=== PATIENT | female | born 1935 | race Caucasian/White ===

== ENCOUNTER 2016-09-02 09:07 | Emergency (ER) | payer MEDICARE, OTHER ==
[2016-09-02] MEDS ORDERED: ASPIRIN 81 MG CHEW PO STA (09:24)
[2016-09-02] MEDS ORDERED: SODIUM CHLORIDE 0.9% 1,000 ML IV STA (09:24)
[2016-09-02] MEDS ORDERED: NITROGLYCERIN OINT 1 INCH/GM PACKET TOPICAL STA (09:24)
--- NOTE | 2016-09-02 09:27 | ED ---
General Adult HPI - General Chief complaint: Chest Pain Stated complaint: chest pain Time Seen by Provider: 09/02/16 09:13 Source: patient, family, RN notes reviewed Mode of arrival: EMS Limitations: no limitations - History of Present Illness Initial comments: Patient is a pleasant 81-year-old female presenting to the emergency department complaining of chest discomfort. Patient has had some symptoms over the past several days. Patient is currently symptom-free. Patient had symptoms again this morning. Discomfort is mild. Patient is unclear what the discomfort felt like. No associated nausea or vomiting. Patient does have associated dyspnea at times. No leg pain or swelling. No cough or fever. No history of cardiac problems. - Related Data Allergies Allergy/AdvReac Type Severity Reaction Status Date / Time No Known Allergies Allergy Verified 09/02/16 09:14 Review of Systems ROS Statement: Those systems with pertinent positive or pertinent negative responses have been documented in the HPI. ROS Other: All systems not noted in ROS Statement are negative. Constitutional: Denies: fever Eyes: Denies: eye pain ENT: Denies: ear pain Respiratory: Reports: dyspnea. Denies: cough Cardiovascular: Reports: chest pain Endocrine: Denies: fatigue Gastrointestinal: Denies: abdominal pain Genitourinary: Denies: dysuria Musculoskeletal: Denies: back pain Skin: Denies: rash Neurological: Denies: weakness Past Medical History Past Medical History: Seizure Disorder, Syncope History of Any Multi-Drug Resistant Organisms: None Reported Past Surgical History: No Surgical Hx Reported Past Psychological History: No Psychological Hx Reported Smoking Status: Former smoker Past Alcohol Use History: None Reported Past Drug Use History: None Reported General Exam Limitations: no limitations General appearance: alert, in no apparent distress Head exam: Present: atraumatic Eye exam: Present: normal appearance, PERRL ENT exam: Present: normal oropharynx Neck exam: Present: normal inspection Respiratory exam: Present: normal lung sounds bilaterally Cardiovascular Exam: Present: regular rate, normal rhythm Expanded Peripheral pulses: 2+: Radial (R), Radial (L), Dorsalis Pedis (R), Dorsalis Pedis (L) GI/Abdominal exam: Present: soft. Absent: tenderness Extremities exam: Present: normal inspection. Absent: pedal edema, calf tenderness Neurological exam: Present: alert Psychiatric exam: Present: normal affect, normal mood Skin exam: Absent: rash Course Vital Signs 09/02/16 09/02/16 09:08 10:14 Temperature 98.1 F Pulse Rate 59 L 52 L Respiratory 16 18 Rate Blood Pressure 122/67 115/59 O2 Sat by Pulse 98 98 Oximetry EKG Findings - EKG Comments: EKG Findings:: Sinus bradycardia 59. Normal intervals. Left axis. Low QRS voltage. Nonspecific ST-T. Medical Decision Making - Medical Decision Making Patient reexamined and resting comfortably in bed. Patient and family updated on results and plan. Case was discussed in detail with Dr. Hoover, who will admit for Dr. Olguin. - Lab Data Result diagrams: 09/02/16 09:20 09/02/16 09:20 Lab Results 09/02/16 09/02/16 09/02/16 Range/Units 09:20 09:20 09:20 WBC 3.8 (3.8-10.6) k/uL RBC 4.42 (3.80-5.40) m/uL Hgb 13.3 (11.4-16.0) gm/dL Hct 39.9 (34.0-46.0) % MCV 90.3 (80.0-100.0) fL MCH 30.1 (25.0-35.0) pg MCHC 33.3 (31.0-37.0) g/dL RDW 13.5 (11.5-15.5) % Plt Count 194 (150-450) k/uL Neutrophils % 50 % Lymphocytes % 36 % Monocytes % 7 % Eosinophils % 3 % Basophils % 1 % Neutrophils # 1.9 (1.3-7.7) k/uL Lymphocytes # 1.4 (1.0-4.8) k/uL Monocytes # 0.3 (0-1.0) k/uL Eosinophils # 0.1 (0-0.7) k/uL Basophils # 0.0 (0-0.2) k/uL PT (9.0-12.0) sec INR (<1.1) APTT (22.0-30.0) sec Sodium 139 (137-145) mmol/L Potassium 4.7 (3.5-5.1) mmol/L Chloride 108 H (98-107) mmol/L Carbon Dioxide 21 L (22-30) mmol/L Anion Gap 10 mmol/L BUN 8 (7-17) mg/dL Creatinine 0.80 (0.52-1.04) mg/dL Est GFR (MDRD) Af Amer >60 (>60 ml/min/1.73 sqM) Est GFR (MDRD) Non-Af >60 (>60 ml/min/1.73 sqM) Glucose 100 H (74-99) mg/dL Calcium 8.5 (8.4-10.2) mg/dL Magnesium 1.7 (1.6-2.3) mg/dL Total Bilirubin 0.9 (0.2-1.3) mg/dL AST 29 (14-36) U/L ALT 34 (9-52) U/L Alkaline Phosphatase 93 (38-126) U/L Total Creatine Kinase 96 (30-135) U/L CK-MB (CK-2) 0.5 (0.0-2.4) ng/mL CK-MB (CK-2) Rel Index 0.5 Troponin I <0.012 (0.000-0.034) ng/mL Total Protein 6.5 (6.3-8.2) g/dL Albumin 3.4 L (3.5-5.0) g/dL 09/02/16 Range/Units 09:20 WBC (3.8-10.6) k/uL RBC (3.80-5.40) m/uL Hgb (11.4-16.0) gm/dL Hct (34.0-46.0) % MCV (80.0-100.0) fL MCH (25.0-35.0) pg MCHC (31.0-37.0) g/dL RDW (11.5-15.5) % Plt Count (150-450) k/uL Neutrophils % % Lymphocytes % % Monocytes % % Eosinophils % % Basophils % % Neutrophils # (1.3-7.7) k/uL Lymphocytes # (1.0-4.8) k/uL Monocytes # (0-1.0) k/uL Eosinophils # (0-0.7) k/uL Basophils # (0-0.2) k/uL PT 10.6 (9.0-12.0) sec INR 1.1 (<1.1) APTT 24.0 (22.0-30.0) sec Sodium (137-145) mmol/L Potassium (3.5-5.1) mmol/L Chloride (98-107) mmol/L Carbon Dioxide (22-30) mmol/L Anion Gap mmol/L BUN (7-17) mg/dL Creatinine (0.52-1.04) mg/dL Est GFR (MDRD) Af Amer (>60 ml/min/1.73 sqM) Est GFR (MDRD) Non-Af (>60 ml/min/1.73 sqM) Glucose (74-99) mg/dL Calcium (8.4-10.2) mg/dL Magnesium (1.6-2.3) mg/dL Total Bilirubin (0.2-1.3) mg/dL AST (14-36) U/L ALT (9-52) U/L Alkaline Phosphatase (38-126) U/L Total Creatine Kinase (30-135) U/L CK-MB (CK-2) (0.0-2.4) ng/mL CK-MB (CK-2) Rel Index Troponin I (0.000-0.034) ng/mL Total Protein (6.3-8.2) g/dL Albumin (3.5-5.0) g/dL - Radiology Data Radiology results: image reviewed (Chest x-ray shows minimal right focal density. Acute pulmonary process not otherwise identified.) Disposition Clinical Impression: Chest pain Disposition: ADMITTED IP TO THIS HOSP
[2016-09-02 09:37] LABS: Basophils % (A) 1 %; CH 29.8; CHCM 33.2; Eosinophils # (A) 0.1 k/uL (0-0.7); Eosinophils % (A) 3 %; HCT 39.9 % (34.0-46.0); HDW 2.28; HGB 13.3 gm/dL (11.4-16.0); Luc # (Auto) 0.11; Luc % (Auto) 3; Lymphocytes # (A) 1.4 k/uL (1.0-4.8); Lymphocytes % (A) 36 %; MCH 30.1 pg (25.0-35.0); MCHC 33.3 g/dL (31.0-37.0); MCV 90.3 fL (80.0-100.0); Mean Platelet Volume 8.2; Monocytes # (A) 0.3 k/uL (0-1.0); Monocytes % (A) 7 %; Neutrophils # (A) 1.9 k/uL (1.3-7.7); Neutrophils % (A) 50 %; RBC 4.42 m/uL (3.80-5.40); RDW 13.5 % (11.5-15.5); WBC 3.8 k/uL (3.8-10.6); WBC (Perox) 3.87
[2016-09-02 09:47] LABS: INR 1.1 (<1.1); Prothrombin Time 10.6 sec (9.0-12.0)
--- NOTE | 2016-09-02 09:50 | XR ---
EXAMINATION TYPE: XR chest 2V DATE OF EXAM: 09/02/2016 9:43 AM COMPARISON: NONE INDICATION: Chest pain TECHNIQUE: Frontal and lateral views of the chest are obtained. FINDINGS: The heart size is normal. The pulmonary vasculature is normal. Some minimal infiltrate in the right base. Follow up is recommended. IMPRESSION: 1. Minimal focal density and/or infiltrate in the right infrahilar region. Follow-up is recommended. 2. Acute pulmonary process is not otherwise identified.
[2016-09-02 09:54] LABS: Anion Gap 10 mmol/L; Calcium 8.5 mg/dL (8.4-10.2); Carbon Dioxide 21 mmol/L (22-30); Chloride 108 mmol/L (98-107); Glucose 100 mg/dL (74-99); Non-African American GFR(MDRD) >60 (>60 ml/min/1.73 sqM); Sodium 139 mmol/L (137-145); Total Bilirubin 0.9 mg/dL (0.2-1.3); Total Protein 6.5 g/dL (6.3-8.2)
[2016-09-02 10:00] LABS: ALT 34 U/L (9-52); AST 29 U/L (14-36); Blood Urea Nitrogen 8 mg/dL (7-17); Magnesium 1.7 mg/dL (1.6-2.3); Potassium 4.7 mmol/L (3.5-5.1)
[2016-09-02 10:01] LABS: Alkaline Phosphatase 93 U/L (38-126)
[2016-09-02 10:06] LABS: Creatine Kinase 96 U/L (30-135)
[2016-09-02 10:19] LABS: Creatine Kinase MB 0.5 ng/mL (0.0-2.4)
[2016-09-02 10:25] LABS: Troponin I <0.012 ng/mL (0.000-0.034)
[2016-09-02] MEDS ORDERED: NITROGLYCERIN SL TABS 0.4 MG TAB SUBLINGUAL PRN (11:40)
[2016-09-02] MEDS ORDERED: NITROGLYCERIN OINT 1 INCH/GM PACKET TOPICAL SCH (12:00)
[2016-09-02 12:08] VITALS: BP 114/57; PULSE 51; RESP 20; TEMP 97.5
[2016-09-02] MEDS ORDERED: HEPARIN SODIUM,PORCINE 5,000 UNIT/ML 1 ML VIAL SQ SCH (21:00)
[2016-09-03] MEDS ORDERED: ASPIRIN 325 MG TAB PO SCH (09:00)
== END 2016-09-02 12:36 | disposition left against medical advice (07) ==
LOC: EEVIPCON 09:07 → EC 09:07 → UNDOADMOB 11:40 → 3OBS 11:40 → EC 12:36
DX: R07.89 Other chest pain (principal); R06.00 Dyspnea, unspecified; G40.909 Epilepsy, unspecified, not intractable, without status epilepticus; Z87.891 Personal history of nicotine dependence; Z79.82 Long term (current) use of aspirin; Z79.899 Other long term (current) drug therapy
CPT/HCPCS: 36415; 71020; 80053; 82550; 82553; 83735; 84484; 85025; 85610; 85730; 93005; 96360; 96361; 99285

== ENCOUNTER 2016-10-03 19:38 | Emergency (ER) | payer MEDICARE ==
[2016-10-03 19:57] VITALS: RESP 16; TEMP 98.4
[2016-10-03] MEDS ORDERED: SODIUM CHLORIDE 0.9% 1,000 ML IV STA (20:12)
[2016-10-03] MEDS ORDERED: SODIUM CHLORIDE 0.9% 500 ML IV STA (20:12)
--- NOTE | 2016-10-03 20:14 | ED ---
General Adult HPI - General Chief complaint: Abdominal Pain Stated complaint: ABD PAIN Time Seen by Provider: 10/03/16 19:58 Source: patient, EMS, RN notes reviewed, old records reviewed Mode of arrival: EMS Limitations: no limitations - History of Present Illness Initial comments: This is an 81-year-old female here for evaluation of weakness dizziness, feels like she may pass out. Patient has history of seizure, history of stroke. Patient has no chest pain. No shortness of breath. No abdominal pain. No change medications. She did have diarrhea yesterday and is had decreased appetite. She does feel dehydrated. Patient denies fever no sickness to travel history. No sick contacts. - Related Data Home Medications Medication Instructions Recorded Confirmed Acetaminophen Tab [Tylenol Tab] 500 mg PO Q6H PRN 09/02/16 10/03/16 Aspirin EC [Ecotrin Low Dose] 81 mg PO DAILY@0909/02/16 10/03/16 Atorvastatin [Lipitor] 40 mg PO HS@192909/02/16 10/03/16 Cholecalciferol [Vitamin D3] 1,000 unit PO DAILY@0909/02/16 10/03/16 Escitalopram [Lexapro] 15 mg PO DAILY@0909/02/16 10/03/16 Hydrocortisone Valerate 1 applic TOPICAL BID PRN 09/02/16 10/03/16 LORazepam [Ativan] 0.25 mg PO BID@0900,192909/02/16 10/03/16 Metoprolol Tartrate [Lopressor] 25 mg PO BID@0900,192909/02/16 10/03/16 Omeprazole 20 mg PO BID@0900,192909/02/16 10/03/16 Rivastigmine Tartrate [Exelon] 1.5 mg PO AC-BID@0900,192909/02/16 10/03/16 amLODIPine [Norvasc] 5 mg PO DAILY@0909/02/16 10/03/16 levETIRAcetam [Keppra] 500 mg PO BID@0900,192909/02/16 10/03/16 Allergies Allergy/AdvReac Type Severity Reaction Status Date / Time cat dander Allergy Unknown Verified 10/03/16 20:16 erythromycin base Allergy Unknown Verified 03/14/17 20:16 [From Erythrocin] watermelon Allergy Unknown Verified 10/03/16 20:16 Review of Systems ROS Statement: Those systems with pertinent positive or pertinent negative responses have been documented in the HPI. ROS Other: All systems not noted in ROS Statement are negative. Past Medical History Past Medical History: Seizure Disorder, Syncope History of Any Multi-Drug Resistant Organisms: None Reported Past Surgical History: No Surgical Hx Reported Past Psychological History: No Psychological Hx Reported Smoking Status: Former smoker Past Alcohol Use History: None Reported Past Drug Use History: None Reported General Exam Limitations: no limitations General appearance: alert, in no apparent distress Head exam: Present: atraumatic, normocephalic, normal inspection Eye exam: Present: normal appearance, PERRL, EOMI. Absent: scleral icterus, conjunctival injection, periorbital swelling ENT exam: Present: normal exam, mucous membranes moist Neck exam: Present: normal inspection. Absent: tenderness, meningismus, lymphadenopathy Respiratory exam: Present: normal lung sounds bilaterally. Absent: respiratory distress, wheezes, rales, rhonchi, stridor Cardiovascular Exam: Present: regular rate, normal rhythm, normal heart sounds. Absent: systolic murmur, diastolic murmur, rubs, gallop, clicks GI/Abdominal exam: Present: soft, normal bowel sounds. Absent: distended, tenderness, guarding, rebound, rigid Extremities exam: Present: normal inspection, full ROM, normal capillary refill. Absent: tenderness, pedal edema, joint swelling, calf tenderness Back exam: Present: normal inspection Neurological exam: Present: alert, oriented X3, CN II-XII intact Psychiatric exam: Present: normal affect, normal mood Skin exam: Present: warm, dry, intact, normal color. Absent: rash Course Vital Signs 10/03/16 19:54 Temperature 98.4 F Pulse Rate 68 Respiratory 16 Rate Blood Pressure 144/71 O2 Sat by Pulse 95 Oximetry EKG Findings - EKG Comments: EKG Findings:: EKG shows normal sinus rhythm rate of 67, [place] 152, QRS 66, QTC 441 Medical Decision Making - Medical Decision Making 81 female seen and evaluated for diarrhea, weakness, abdominal pain, dizziness. Patient's symptoms of this time resolved, she has no complaints. Urinary tract infection is cleared up, patient can be discharged home - Lab Data Result diagrams: 10/03/16 19:50 10/03/16 19:50 Lab Results 10/03/16 10/03/16 10/03/16 Range/Units 19:50 19:50 19:50 WBC 5.4 (3.8-10.6) k/uL RBC 4.12 (3.80-5.40) m/uL Hgb 12.2 (11.4-16.0) gm/dL Hct 37.8 (34.0-46.0) % MCV 91.6 (80.0-100.0) fL MCH 29.6 (25.0-35.0) pg MCHC 32.3 (31.0-37.0) g/dL RDW 13.7 (11.5-15.5) % Plt Count 222 (150-450) k/uL Neutrophils % 54 % Lymphocytes % 32 % Monocytes % 7 % Eosinophils % 3 % Basophils % 1 % Neutrophils # 2.9 (1.3-7.7) k/uL Lymphocytes # 1.8 (1.0-4.8) k/uL Monocytes # 0.4 (0-1.0) k/uL Eosinophils # 0.2 (0-0.7) k/uL Basophils # 0.0 (0-0.2) k/uL PT (9.0-12.0) sec INR (<1.1) APTT (22.0-30.0) sec Sodium 135 L (137-145) mmol/L Potassium 4.7 (3.5-5.1) mmol/L Chloride 103 (98-107) mmol/L Carbon Dioxide 22 (22-30) mmol/L Anion Gap 10 mmol/L BUN 15 (7-17) mg/dL Creatinine 0.90 (0.52-1.04) mg/dL Est GFR (MDRD) Af Amer >60 (>60 ml/min/1.73 sqM) Est GFR (MDRD) Non-Af >60 (>60 ml/min/1.73 sqM) Glucose 101 H (74-99) mg/dL Calcium 8.8 (8.4-10.2) mg/dL Phosphorus 4.0 (2.5-4.5) mg/dL Magnesium 1.7 (1.6-2.3) mg/dL Total Bilirubin 0.7 (0.2-1.3) mg/dL AST 20 (14-36) U/L ALT 21 (9-52) U/L Alkaline Phosphatase 89 (38-126) U/L Total Creatine Kinase 70 (30-135) U/L CK-MB (CK-2) 0.6 (0.0-2.4) ng/mL CK-MB (CK-2) Rel Index 0.9 Troponin I <0.012 (0.000-0.034) ng/mL Total Protein 6.7 (6.3-8.2) g/dL Albumin 3.7 (3.5-5.0) g/dL Urine Color Urine Appearance (Clear) Urine pH (5.0-8.0) Ur Specific [place] (1.001-1.035) Urine Protein (Negative) Urine Glucose (UA) (Negative) Urine Ketones (Negative) Urine Blood (Negative) Urine Nitrate (Negative) Urine Bilirubin (Negative) Urine Urobilinogen (<2.0) mg/dL Ur Leukocyte Esterase (Negative) Urine RBC (0-5) /hpf Urine WBC (0-5) /hpf Ur Squamous Epith Cells (0-4) /hpf Urine Bacteria (None) /hpf Urine Mucus (None) /hpf 10/03/16 10/03/16 Range/Units 19:50 21:50 WBC (3.8-10.6) k/uL RBC (3.80-5.40) m/uL Hgb (11.4-16.0) gm/dL Hct (34.0-46.0) % MCV (80.0-100.0) fL MCH (25.0-35.0) pg MCHC (31.0-37.0) g/dL RDW (11.5-15.5) % Plt Count (150-450) k/uL Neutrophils % % Lymphocytes % % Monocytes % % Eosinophils % % Basophils % % Neutrophils # (1.3-7.7) k/uL Lymphocytes # (1.0-4.8) k/uL Monocytes # (0-1.0) k/uL Eosinophils # (0-0.7) k/uL Basophils # (0-0.2) k/uL PT 10.3 (9.0-12.0) sec INR 1.0 (<1.1) APTT 22.9 (22.0-30.0) sec Sodium (137-145) mmol/L Potassium (3.5-5.1) mmol/L Chloride (98-107) mmol/L Carbon Dioxide (22-30) mmol/L Anion Gap mmol/L BUN (7-17) mg/dL Creatinine (0.52-1.04) mg/dL Est GFR (MDRD) Af Amer (>60 ml/min/1.73 sqM) Est GFR (MDRD) Non-Af (>60 ml/min/1.73 sqM) Glucose (74-99) mg/dL Calcium (8.4-10.2) mg/dL Phosphorus (2.5-4.5) mg/dL Magnesium (1.6-2.3) mg/dL Total Bilirubin (0.2-1.3) mg/dL AST (14-36) U/L ALT (9-52) U/L Alkaline Phosphatase (38-126) U/L Total Creatine Kinase (30-135) U/L CK-MB (CK-2) (0.0-2.4) ng/mL CK-MB (CK-2) Rel Index Troponin I (0.000-0.034) ng/mL Total Protein (6.3-8.2) g/dL Albumin (3.5-5.0) g/dL Urine Color Yellow Urine Appearance Clear (Clear) Urine pH 5.0 (5.0-8.0) Ur Specific [place] 1.007 (1.001-1.035) Urine Protein Negative (Negative) Urine Glucose (UA) Negative (Negative) Urine Ketones Negative (Negative) Urine Blood Negative (Negative) Urine Nitrate Negative (Negative) Urine Bilirubin Negative (Negative) Urine Urobilinogen <2.0 (<2.0) mg/dL Ur Leukocyte Esterase Trace H (Negative) Urine RBC 1 (0-5) /hpf Urine WBC 2 (0-5) /hpf Ur Squamous Epith Cells <1 (0-4) /hpf Urine Bacteria Rare H (None) /hpf Urine Mucus Rare H (None) /hpf Disposition Clinical Impression: Dehydration Disposition: HOME SELF-CARE Condition: Good Instructions: Dehydration (ED) Referrals: Souleymane Olguin DO [Primary Care Provider] - 1-2 days
[2016-10-03 20:28] LABS: Basophils % (A) 1 %; CH 29.9; CHCM 32.8; Eosinophils # (A) 0.2 k/uL (0-0.7); Eosinophils % (A) 3 %; HCT 37.8 % (34.0-46.0); HDW 2.27; HGB 12.2 gm/dL (11.4-16.0); Luc # (Auto) 0.15; Luc % (Auto) 3; Lymphocytes # (A) 1.8 k/uL (1.0-4.8); Lymphocytes % (A) 32 %; MCH 29.6 pg (25.0-35.0); MCHC 32.3 g/dL (31.0-37.0); MCV 91.6 fL (80.0-100.0); Mean Platelet Volume 8.2; Monocytes # (A) 0.4 k/uL (0-1.0); Monocytes % (A) 7 %; Neutrophils # (A) 2.9 k/uL (1.3-7.7); Neutrophils % (A) 54 %; RBC 4.12 m/uL (3.80-5.40); RDW 13.7 % (11.5-15.5); WBC 5.4 k/uL (3.8-10.6); WBC (Perox) 5.45
[2016-10-03 20:38] LABS: ALT 21 U/L (9-52); AST 20 U/L (14-36); Alkaline Phosphatase 89 U/L (38-126); Anion Gap 10 mmol/L; Blood Urea Nitrogen 15 mg/dL (7-17); Calcium 8.8 mg/dL (8.4-10.2); Carbon Dioxide 22 mmol/L (22-30); Chloride 103 mmol/L (98-107); Glucose 101 mg/dL (74-99); Magnesium 1.7 mg/dL (1.6-2.3); Non-African American GFR(MDRD) >60 (>60 ml/min/1.73 sqM); Potassium 4.7 mmol/L (3.5-5.1); Sodium 135 mmol/L (137-145); Total Bilirubin 0.7 mg/dL (0.2-1.3); Total Protein 6.7 g/dL (6.3-8.2)
[2016-10-03 20:45] LABS: Creatine Kinase 70 U/L (30-135)
[2016-10-03 20:47] LABS: Partial Thromboplastin Time 22.9 sec (22.0-30.0); Prothrombin Time 10.3 sec (9.0-12.0)
[2016-10-03 20:58] LABS: Creatine Kinase MB 0.6 ng/mL (0.0-2.4); Troponin I <0.012 ng/mL (0.000-0.034)
[2016-10-03 22:17] LABS: Appearance,Urine Clear (Clear); Bacteria,Urine Rare /hpf; Bilirubin,Urine Negative (Negative); Glucose,Urine (UA) Negative (Negative); Ketones,Urine Negative (Negative); Leukocyte Esterase,Urine Trace (Negative); Mucus,Urine Rare /hpf; Nitrite,Urine Negative (Negative); Particle Count 890; Protein,Urine Negative (Negative); RBC,Urine 1 /hpf (0-5); Specific Gravity,Urine 1.007 (1.001-1.035); Squamous Epithelial Cell,Urine <1 /hpf (0-4); UA Billing (MACRO vs. MICRO) MICRO; Urobilinogen,Urine <2.0 mg/dL (<2.0); WBC,Urine 2 /hpf (0-5)
[2016-10-03 22:50] VITALS: BP 134/76; PULSE 59
== END 2016-10-03 22:46 | disposition home or self-care (01) ==
LOC: EC 19:38
DX: E86.0 Dehydration (principal); R10.9 Unspecified abdominal pain; G40.909 Epilepsy, unspecified, not intractable, without status epilepticus; Z87.891 Personal history of nicotine dependence; Z79.82 Long term (current) use of aspirin; Z79.899 Other long term (current) drug therapy; Z88.1 Allergy status to other antibiotic agents; Z91.018 Allergy to other foods; Z91.09 Other allergy status, other than to drugs and biological substances; Z86.73 Personal history of transient ischemic attack (TIA), and cerebral infarction without residual deficits
CPT/HCPCS: 36415; 80053; 81001; 82550; 82553; 83735; 84100; 84484; 85025; 85610; 85730; 87086; 93005; 96360; 99285

== ENCOUNTER 2016-11-09 17:07 | Emergency (ER) | payer MEDICARE ==
[2016-11-09 17:15] VITALS: TEMP 99.9
[2016-11-09] MEDS ORDERED: LORazepam 2 MG/ML SYRINGE IV STA (17:25)
--- NOTE | 2016-11-09 17:28 | ED ---
General Adult HPI - General Chief complaint: Seizure Stated complaint: Seizure Time Seen by Provider: 11/09/16 17:09 Source: patient, EMS, RN notes reviewed Mode of arrival: EMS Limitations: altered mental status - History of Present Illness Initial comments: Patient is a pleasant 81-year-old female presenting to the emergency department following seizure. Patient does not recall the episode however states she feels like she does after a seizure. Patient feels slightly drowsy. Patient denies any injury. Patient does not feel confused. Patient states she usually gets seizures approximately once a week. - Related Data Home Medications Medication Instructions Recorded Confirmed Acetaminophen Tab [Tylenol Tab] 500 mg PO Q6H PRN 09/02/16 11/09/16 Aspirin EC [Ecotrin Low Dose] 81 mg PO DAILY@89909/02/16 11/09/16 Atorvastatin [Lipitor] 40 mg PO HS@192909/02/16 11/09/16 Cholecalciferol [Vitamin D3] 1,000 unit PO DAILY@89909/02/16 11/09/16 Escitalopram [Lexapro] 15 mg PO DAILY@89909/02/16 11/09/16 Hydrocortisone Valerate 1 applic TOPICAL BID PRN 09/02/16 11/09/16 LORazepam [Ativan] 0.25 mg PO BID@09,192909/02/16 11/09/16 Metoprolol Tartrate [Lopressor] 25 mg PO BID@09,192909/02/16 11/09/16 Omeprazole 20 mg PO BID@09,192909/02/16 11/09/16 Rivastigmine Tartrate [Exelon] 1.5 mg PO AC-BID@09,192909/02/16 11/09/16 amLODIPine [Norvasc] 5 mg PO DAILY@89909/02/16 11/09/16 levETIRAcetam [Keppra] 500 mg PO BID@09,192909/02/16 11/09/16 Cefuroxime Axetil [Ceftin] 500 mg PO BID@0900,192911/09/16 11/09/16 Previous Rx's Medication Instructions Recorded Sulfamethox-Tmp 800-160Mg [Bactrim 1 each PO Q12HR #20 tab 11/09/16 DS 800-160 mg] Allergies Allergy/AdvReac Type Severity Reaction Status Date / Time cat dander Allergy Unknown Verified 11/09/16 17:24 erythromycin base Allergy Unknown Verified 11/09/16 17:24 [From Erythrocin] watermelon Allergy Unknown Verified 11/09/16 17:24 Review of Systems ROS Statement: Those systems with pertinent positive or pertinent negative responses have been documented in the HPI. ROS Other: All systems not noted in ROS Statement are negative. Constitutional: Denies: fever Eyes: Denies: eye pain ENT: Denies: ear pain Respiratory: Denies: cough Cardiovascular: Denies: chest pain Endocrine: Denies: fatigue Gastrointestinal: Denies: abdominal pain Genitourinary: Denies: urgency Musculoskeletal: Denies: back pain Skin: Denies: rash Neurological: Denies: headache, weakness Past Medical History Past Medical History: Seizure Disorder, Syncope History of Any Multi-Drug Resistant Organisms: None Reported Past Surgical History: No Surgical Hx Reported Past Psychological History: No Psychological Hx Reported Smoking Status: Former smoker Past Alcohol Use History: None Reported Past Drug Use History: None Reported General Exam Limitations: altered mental status General appearance: alert, in no apparent distress Head exam: Present: atraumatic Eye exam: Present: normal appearance, PERRL, EOMI ENT exam: Present: normal oropharynx Neck exam: Present: normal inspection. Absent: tenderness, meningismus Respiratory exam: Present: normal lung sounds bilaterally Cardiovascular Exam: Present: regular rate, normal rhythm GI/Abdominal exam: Present: soft. Absent: tenderness Extremities exam: Present: normal inspection, full ROM. Absent: tenderness Neurological exam: Present: alert, CN II-XII intact. Absent: motor sensory deficit Expanded Patient oriented to: Present: person, place Cranial nerves: EOM's Intact: Normal Motor strength exam: RUE: 5, LUE: 5, RLE: 5, LLE: 5 Psychiatric exam: Present: normal affect, normal mood Skin exam: Present: normal color Course Vital Signs 11/09/16 11/09/16 17:11 18:14 Temperature 99.9 F H Pulse Rate 72 64 Respiratory 20 18 Rate Blood Pressure 133/72 121/59 O2 Sat by Pulse 97 Oximetry EKG Findings - EKG Comments: EKG Findings:: Normal sinus rhythm 66. SD 150. QRS 66. QT 432. QTC 452. Left axis. Normal QRS. Normal ST-T. Medical Decision Making - Medical Decision Making Patient reexamined and resting comfortably in bed. Patient is symptom-free. Family states patient has actually had very few seizures over the past year since starting Keppra. Keppra level has been ordered and sent out. Patient and family updated on results and plan. Patient will be covered with antibiotics for possible urinary tract infection. Daughter states patient did recently finish antibiotics for urinary tract infection. EMS report states cephalosporin. - Lab Data Result diagrams: 11/09/16 17:25 11/09/16 17:25 Lab Results 11/09/16 11/09/16 11/09/16 Range/Units 17:25 17:25 18:06 WBC 6.9 (3.8-10.6) k/uL RBC 4.40 (3.80-5.40) m/uL Hgb 13.5 (11.4-16.0) gm/dL Hct 40.8 (34.0-46.0) % MCV 92.6 (80.0-100.0) fL MCH 30.7 (25.0-35.0) pg MCHC 33.1 (31.0-37.0) g/dL RDW 13.8 (11.5-15.5) % Plt Count 242 (150-450) k/uL Neutrophils % 60 % Lymphocytes % 25 % Monocytes % 7 % Eosinophils % 5 % Basophils % 1 % Neutrophils # 4.1 (1.3-7.7) k/uL Lymphocytes # 1.7 (1.0-4.8) k/uL Monocytes # 0.5 (0-1.0) k/uL Eosinophils # 0.4 (0-0.7) k/uL Basophils # 0.1 (0-0.2) k/uL Sodium 135 L (137-145) mmol/L Potassium 4.7 (3.5-5.1) mmol/L Chloride 100 (98-107) mmol/L Carbon Dioxide 24 (22-30) mmol/L Anion Gap 11 mmol/L BUN 16 (7-17) mg/dL Creatinine 0.89 (0.52-1.04) mg/dL Est GFR (MDRD) Af Amer >60 (>60 ml/min/1.73 sqM) Est GFR (MDRD) Non-Af >60 (>60 ml/min/1.73 sqM) Glucose 106 H (74-99) mg/dL Calcium 9.1 (8.4-10.2) mg/dL Magnesium 1.7 (1.6-2.3) mg/dL Total Bilirubin 0.7 (0.2-1.3) mg/dL AST 22 (14-36) U/L ALT 24 (9-52) U/L Alkaline Phosphatase 104 (38-126) U/L Total Protein 6.9 (6.3-8.2) g/dL Albumin 3.9 (3.5-5.0) g/dL Urine Color Yellow Urine Appearance Clear (Clear) Urine pH 5.5 (5.0-8.0) Ur Specific [place] 1.019 (1.001-1.035) Urine Protein 1+ H (Negative) Urine Glucose (UA) Negative (Negative) Urine Ketones Negative (Negative) Urine Blood Negative (Negative) Urine Nitrite Negative (Negative) Urine Bilirubin Negative (Negative) Urine Urobilinogen <2.0 (<2.0) mg/dL Ur Leukocyte Esterase Trace H (Negative) Urine RBC 2 (0-5) /hpf Urine WBC 7 H (0-5) /hpf Ur Squamous Epith Cells 1 (0-4) /hpf Urine Bacteria Rare H (None) /hpf Hyaline Casts 1 (0-2) /lpf Urine Mucus Moderate H (None) /hpf - Radiology Data Radiology results: image reviewed (Chest x-ray shows atelectasis. Numerous thoracic compression fractures that appear stable.) Disposition Clinical Impression: Generalized seizure Disposition: HOME SELF-CARE Condition: Stable Instructions: Recurrent Seizures in Adults (ED) Additional Instructions: Please follow-up to primary care physician in the next day or 2 for recheck. Please have primary care physician review report and check for urine culture results. Return for fever, increased seizures, altered mental status, weakness , worsening symptoms or other concerns. Prescriptions: Sulfamethox-Tmp 800-160Mg [Bactrim DS 800-160 mg] 1 each PO Q12HR #20 tab Referrals: Souleymane Olguin DO [Primary Care Provider] - 1-2 days Yon Harp MD [STAFF PHYSICIAN] - 1-2 days
[2016-11-09 17:43] LABS: Basophils # (A) 0.1 k/uL (0-0.2); Basophils % (A) 1 %; CH 30.6; CHCM 33.2; Eosinophils # (A) 0.4 k/uL (0-0.7); Eosinophils % (A) 5 %; HCT 40.8 % (34.0-46.0); HDW 2.24; HGB 13.5 gm/dL (11.4-16.0); Luc # (Auto) 0.14; Luc % (Auto) 2; Lymphocytes # (A) 1.7 k/uL (1.0-4.8); Lymphocytes % (A) 25 %; MCH 30.7 pg (25.0-35.0); MCHC 33.1 g/dL (31.0-37.0); MCV 92.6 fL (80.0-100.0); Mean Platelet Volume 8.4; Monocytes # (A) 0.5 k/uL (0-1.0); Monocytes % (A) 7 %; Neutrophils # (A) 4.1 k/uL (1.3-7.7); Neutrophils % (A) 60 %; RDW 13.8 % (11.5-15.5); WBC 6.9 k/uL (3.8-10.6); WBC (Perox) 7.28
[2016-11-09 17:53] LABS: ALT 24 U/L (9-52); AST 22 U/L (14-36); Alkaline Phosphatase 104 U/L (38-126); Anion Gap 11 mmol/L; Blood Urea Nitrogen 16 mg/dL (7-17); Calcium 9.1 mg/dL (8.4-10.2); Carbon Dioxide 24 mmol/L (22-30); Chloride 100 mmol/L (98-107); Glucose 106 mg/dL (74-99); Magnesium 1.7 mg/dL (1.6-2.3); Non-African American GFR(MDRD) >60 (>60 ml/min/1.73 sqM); Potassium 4.7 mmol/L (3.5-5.1); Sodium 135 mmol/L (137-145); Total Bilirubin 0.7 mg/dL (0.2-1.3); Total Protein 6.9 g/dL (6.3-8.2)
--- NOTE | 2016-11-09 17:57 | XR ---
EXAMINATION TYPE: XR chest 2V DATE OF EXAM: 11/09/2016 5:52 PM COMPARISON: 09/02/2016 HISTORY: Seizure today TECHNIQUE: Frontal and lateral views of the chest are obtained. FINDINGS: There is some linear density at the left lung base. Heart size is normal. There are no hil ar masses. Thoracic aorta is atheromatous. There are chest leads. There is osteopenia with thoracic k yphosis and anterior wedging of several vertebra. IMPRESSION: There is new atelectasis at the left lung base compared to last exam. No heart failure. Numerous thoracic compression fractures appear stable.
[2016-11-09 18:24] LABS: Appearance,Urine Clear (Clear); Bacteria,Urine Rare /hpf; Bilirubin,Urine Negative (Negative); Glucose,Urine (UA) Negative (Negative); Ketones,Urine Negative (Negative); Leukocyte Esterase,Urine Trace (Negative); Mucus,Urine Moderate /hpf; Nitrite,Urine Negative (Negative); PH, Urine 5.5 (5.0-8.0); Particle Count 4614; Protein,Urine 1+ (Negative); RBC,Urine 2 /hpf (0-5); Specific Gravity,Urine 1.019 (1.001-1.035); Squamous Epithelial Cell,Urine 1 /hpf (0-4); UA Billing (MACRO vs. MICRO) MICRO; Urobilinogen,Urine <2.0 mg/dL (<2.0); WBC,Urine 7 /hpf (0-5)
[2016-11-09 18:29] VITALS: BP 121/59; PULSE 64; RESP 18
== END 2016-11-09 19:09 | disposition home or self-care (01) ==
LOC: EC 17:07
DX: G40.909 Epilepsy, unspecified, not intractable, without status epilepticus (principal); J98.11 Atelectasis; Z88.1 Allergy status to other antibiotic agents; Z91.018 Allergy to other foods; Z91.09 Other allergy status, other than to drugs and biological substances; Z79.82 Long term (current) use of aspirin; Z79.899 Other long term (current) drug therapy; Z87.891 Personal history of nicotine dependence
CPT/HCPCS: 99285 ×2; 96374 ×2; 36415; 93005; 80053; 83735; 85025; 81001; 87086; 87077; 87186; 71020; J2060

== ENCOUNTER 2017-05-13 12:29 | Emergency (ER) | payer MEDICARE ==
[2017-05-13] MEDS ORDERED: SODIUM CHLORIDE 0.9% 500 ML IV ONE (12:49)
[2017-05-13] MEDS ORDERED: ONDANSETRON 4 MG/2 ML VIAL IVP STA (12:49)
--- NOTE | 2017-05-13 12:52 | ED ---
General Adult HPI - General Stated complaint: Nausea/Vomiting Time Seen by Provider: 05/13/17 12:40 Source: RN notes reviewed - History of Present Illness Initial comments: This is an 81-year-old female presents emergency Department with dementia. Patient states that her symptoms began shortly after she ate some salami that was in the refrigerator for longer than it should've been.. Patient states she did vomit this morning and continued to have nausea since. Patient states she didn't think she was going to stop being nauseous so she called the ambulance. Patient denies any new abdominal pain but states she has had chronic abdominal pain for quite a while. Patient denies chest pain or difficulty breathing or shortness of breath. Patient denies any recent fever chills or cough. Patient denies any headache patient denies numbness weakness - Related Data Home Medications Medication Instructions Recorded Confirmed Acetaminophen Tab [Tylenol Tab] 500 mg PO Q6H PRN 09/02/16 05/13/17 Aspirin EC [Ecotrin Low Dose] 81 mg PO DAILY@89909/02/16 05/13/17 Atorvastatin [Lipitor] 40 mg PO HS@192909/02/16 05/13/17 Cholecalciferol [Vitamin D3] 1,000 unit PO DAILY@89909/02/16 05/13/17 Escitalopram [Lexapro] 15 mg PO DAILY@89909/02/16 05/13/17 Hydrocortisone Valerate 1 applic TOPICAL BID PRN 09/02/16 05/13/17 LORazepam [Ativan] 0.25 mg PO BID@09,192909/02/16 05/13/17 Metoprolol Tartrate [Lopressor] 25 mg PO BID@09,192909/02/16 05/13/17 Omeprazole 20 mg PO BID@09,192909/02/16 05/13/17 Rivastigmine Tartrate [Exelon] 1.5 mg PO AC-BID@899,192909/02/16 05/13/17 amLODIPine [Norvasc] 5 mg PO DAILY@0909/02/16 05/13/17 levETIRAcetam [Keppra] 500 mg PO BID@09,192909/02/16 05/13/17 Allergies Allergy/AdvReac Type Severity Reaction Status Date / Time cat dander Allergy Unknown Verified 05/13/17 14:12 erythromycin base Allergy Unknown Verified 05/13/17 14:12 [From Erythrocin] watermelon Allergy Unknown Verified 05/13/17 14:12 Review of Systems ROS Statement: Those systems with pertinent positive or pertinent negative responses have been documented in the HPI. ROS Other: All systems not noted in ROS Statement are negative. Past Medical History Past Medical History: Seizure Disorder, Syncope History of Any Multi-Drug Resistant Organisms: None Reported Past Surgical History: No Surgical Hx Reported Past Psychological History: No Psychological Hx Reported Smoking Status: Former smoker Past Alcohol Use History: None Reported Past Drug Use History: None Reported General Exam - General Exam Comments Initial Comments: GENERAL: Patient is well-developed and well-nourished. Patient is nontoxic and well- hydrated and is in mild distress. ENT: Neck is soft and supple. No significant lymphadenopathy is noted. Oropharynx is clear. Moist mucous membranes. Neck has full range of motion without eliciting any pain. EYES: The sclera were anicteric and conjunctiva were pink and moist. Extraocular movements were intact and pupils were equal round and reactive to light. Eyelids were unremarkable. PULMONARY: Unlabored respirations. Good breath sounds bilaterally. No audible rales rhonchi or wheezing was noted. CARDIOVASCULAR: There is a regular rate and rhythm without any murmurs gallops or rubs. ABDOMEN: Soft and nontender with normal bowel sounds. No palpable organomegaly was noted. There is no palpable pulsatile mass. SKIN: Skin is clear with no lesions or rashes and otherwise unremarkable. NEUROLOGIC: Patient is alert and oriented 2. Cranial nerves II through XII are grossly intact. Motor and sensory are also intact. Normal speech, volume and content. Symmetrical smile. MUSCULOSKELETAL: Normal extremities with adequate strength and full range of motion. No lower extremity swelling or edema. No calf tenderness. LYMPHATICS: No significant lymphadenopathy is noted PSYCHIATRIC: Normal psychiatric evaluation. Course Vital Signs 05/13/17 13:01 Temperature 97.5 F L Pulse Rate 67 Respiratory 18 Rate Blood Pressure 112/58 O2 Sat by Pulse 98 Oximetry Medical Decision Making - Medical Decision Making EKG shows normal sinus rhythm at 67 bpm [place] interval is a 54 QRS is 72 QT interval 4:30 QTC is 454 per patient's EKG shows no ST segment elevation or depression or T wave abnormalities are noted. I went back to reevaluate the patient she stated that she was no longer nauseated and had no complaints at this time. Patient was requesting to go home at this time. - Lab Data Result diagrams: 05/13/17 13:14 05/13/17 13:14 Lab Results 05/13/17 05/13/17 Range/Units 13:14 13:14 WBC 8.2 (3.8-10.6) k/uL RBC 3.78 L (3.80-5.40) m/uL Hgb 11.3 L (11.4-16.0) gm/dL Hct 35.5 (34.0-46.0) % MCV 94.0 (80.0-100.0) fL MCH 30.0 (25.0-35.0) pg MCHC 31.9 (31.0-37.0) g/dL RDW 13.8 (11.5-15.5) % Plt Count 287 (150-450) k/uL Neutrophils % 72 % Lymphocytes % 14 % Monocytes % 7 % Eosinophils % 5 % Basophils % 1 % Neutrophils # 5.9 (1.3-7.7) k/uL Lymphocytes # 1.1 (1.0-4.8) k/uL Monocytes # 0.5 (0-1.0) k/uL Eosinophils # 0.4 (0-0.7) k/uL Basophils # 0.1 (0-0.2) k/uL Sodium 130 L (137-145) mmol/L Potassium 4.4 (3.5-5.1) mmol/L Chloride 99 (98-107) mmol/L Carbon Dioxide 22 (22-30) mmol/L Anion Gap 9 mmol/L BUN 10 (7-17) mg/dL Creatinine 0.80 (0.52-1.04) mg/dL Est GFR (MDRD) Af Amer >60 (>60 ml/min/1.73 sqM) Est GFR (MDRD) Non-Af >60 (>60 ml/min/1.73 sqM) Glucose 106 H (74-99) mg/dL Calcium 8.6 (8.4-10.2) mg/dL Magnesium 1.6 (1.6-2.3) mg/dL Total Bilirubin 0.7 (0.2-1.3) mg/dL AST 21 (14-36) U/L ALT 29 (9-52) U/L Alkaline Phosphatase 123 (38-126) U/L Total Protein 6.5 (6.3-8.2) g/dL Albumin 3.3 L (3.5-5.0) g/dL Disposition Clinical Impression: Acute vomiting Disposition: HOME SELF-CARE Instructions: Acute Nausea and Vomiting (ED) Referrals: Souleymane Olguin DO [Primary Care Provider] - 1-2 days Time of Disposition: 14:25
[2017-05-13 13:07] VITALS: RESP 18
[2017-05-13 13:26] LABS: Basophils # (A) 0.1 k/uL (0-0.2); Basophils % (A) 1 %; CH 31.3; CHCM 33.5; Eosinophils # (A) 0.4 k/uL (0-0.7); Eosinophils % (A) 5 %; HCT 35.5 % (34.0-46.0); HDW 2.42; HGB 11.3 gm/dL (11.4-16.0); Luc # (Auto) 0.15; Luc % (Auto) 2; Lymphocytes # (A) 1.1 k/uL (1.0-4.8); Lymphocytes % (A) 14 %; MCHC 31.9 g/dL (31.0-37.0); Mean Platelet Volume 8.4; Monocytes # (A) 0.5 k/uL (0-1.0); Monocytes % (A) 7 %; Neutrophils # (A) 5.9 k/uL (1.3-7.7); Neutrophils % (A) 72 %; RBC 3.78 m/uL (3.80-5.40); RDW 13.8 % (11.5-15.5); WBC 8.2 k/uL (3.8-10.6); WBC (Perox) 8.47
[2017-05-13 13:37] LABS: ALT 29 U/L (9-52); AST 21 U/L (14-36); Alkaline Phosphatase 123 U/L (38-126); Anion Gap 9 mmol/L; Blood Urea Nitrogen 10 mg/dL (7-17); Calcium 8.6 mg/dL (8.4-10.2); Carbon Dioxide 22 mmol/L (22-30); Chloride 99 mmol/L (98-107); Glucose 106 mg/dL (74-99); Magnesium 1.6 mg/dL (1.6-2.3); Non-African American GFR(MDRD) >60 (>60 ml/min/1.73 sqM); Potassium 4.4 mmol/L (3.5-5.1); Sodium 130 mmol/L (137-145); Total Bilirubin 0.7 mg/dL (0.2-1.3); Total Protein 6.5 g/dL (6.3-8.2)
[2017-05-13] MEDS ORDERED: ONDANSETRON 4 MG ODT STARTER PACK 2 TAB BTL PO STA (14:25)
[2017-05-13 14:52] VITALS: BP 106/59; PULSE 66; TEMP 97.2
== END 2017-05-13 14:50 | disposition home or self-care (01) ==
LOC: EC 12:29
DX: R11.10 Vomiting, unspecified (principal); G40.909 Epilepsy, unspecified, not intractable, without status epilepticus; Z87.891 Personal history of nicotine dependence; Z79.82 Long term (current) use of aspirin; Z79.899 Other long term (current) drug therapy; Z88.1 Allergy status to other antibiotic agents; Z91.018 Allergy to other foods; Z91.048 Other nonmedicinal substance allergy status
CPT/HCPCS: 99284 ×2; 96374 ×2; 36415; 93005; 80053; 83735; 85025; J2405; S0119

== ENCOUNTER 2017-05-15 00:06 | Emergency (ER) | payer MEDICARE ==
[2017-05-15 00:15] VITALS: TEMP 98.5
[2017-05-15] MEDS ORDERED: IPRATROPIUM-ALBUTEROL 3 ML NEB INHALATION STA (00:54)
[2017-05-15] MEDS ORDERED: ACETAMINOPHEN TAB 500 MG TAB PO STA (00:57)
--- NOTE | 2017-05-15 00:57 | ED ---
Fall HPI - General Chief Complaint: Fall Stated Complaint: FALL Time Seen by Provider: 05/15/17 00:48 Source: patient Mode of arrival: EMS Limitations: no limitations - History of Present Illness Initial Comments: this an 81-year-old female presents emergency department via EMS from [facility] for a fall. Patient rolled out of bed. Patient states that shepulled out and could not get up. She does complain of left-sided head, upper back pain. She states that some which her neck at this time. She does complain of some left shoulder pain. Denies hip or any low back pain. Patient states that she was seen here yesterday morning for nausea and vomiting which has improved. Patient denies fever or chills. Patient denies any chest pain or shortness of breath. - Related Data Home Medications Medication Instructions Recorded Confirmed Acetaminophen Tab [Tylenol Tab] 500 mg PO Q6H PRN 09/02/16 05/15/17 Aspirin EC [Ecotrin Low Dose] 81 mg PO DAILY@89909/02/16 05/15/17 Atorvastatin [Lipitor] 40 mg PO HS@192909/02/16 05/15/17 Cholecalciferol [Vitamin D3] 1,000 unit PO DAILY@89909/02/16 05/15/17 Escitalopram [Lexapro] 15 mg PO DAILY@89909/02/16 05/15/17 Hydrocortisone Valerate 1 applic TOPICAL BID PRN 09/02/16 05/15/17 LORazepam [Ativan] 0.25 mg PO BID@09,192909/02/16 05/15/17 Metoprolol Tartrate [Lopressor] 25 mg PO BID@09,192909/02/16 05/15/17 Omeprazole 20 mg PO BID@09,192909/02/16 05/15/17 Rivastigmine Tartrate [Exelon] 1.5 mg PO AC-BID@899,192909/02/16 05/15/17 amLODIPine [Norvasc] 5 mg PO DAILY@89909/02/16 05/15/17 levETIRAcetam [Keppra] 500 mg PO BID@09,192909/02/16 05/15/17 Allergies Allergy/AdvReac Type Severity Reaction Status Date / Time cat dander Allergy Unknown Verified 05/15/17 00:15 erythromycin base Allergy Unknown Verified 05/15/17 00:15 [From Erythrocin] watermelon Allergy Unknown Verified 05/15/17 00:15 Review of Systems ROS Statement: Those systems with pertinent positive or pertinent negative responses have been documented in the HPI. ROS Other: All systems not noted in ROS Statement are negative. Past Medical History Past Medical History: Seizure Disorder, Syncope History of Any Multi-Drug Resistant Organisms: None Reported Past Surgical History: No Surgical Hx Reported Past Psychological History: No Psychological Hx Reported Smoking Status: Former smoker Past Alcohol Use History: Occasional Past Drug Use History: None Reported General Exam Limitations: no limitations General appearance: alert, in no apparent distress Head exam: Present: atraumatic, normocephalic, normal inspection Eye exam: Present: normal appearance, PERRL, EOMI. Absent: scleral icterus, conjunctival injection, periorbital swelling ENT exam: Present: normal exam, normal oropharynx, mucous membranes moist, TM's normal bilaterally, normal external ear exam Neck exam: Present: normal inspection, full ROM, other (tenderness over the left trapezius region). Absent: tenderness, meningismus, lymphadenopathy Respiratory exam: Present: normal lung sounds bilaterally. Absent: respiratory distress, wheezes, rales, rhonchi, stridor Cardiovascular Exam: Present: regular rate, normal rhythm, normal heart sounds. Absent: systolic murmur, diastolic murmur, rubs, gallop, clicks Extremities exam: Present: other (mild tenderness to the left shoulder with slightly decreased range of motion.) Back exam: Present: full ROM. Absent: tenderness, muscle spasm, paraspinal tenderness, vertebral tenderness Neurological exam: Present: alert, oriented X3, CN II-XII intact, reflexes normal. Absent: motor sensory deficit Skin exam: Present: warm, dry, intact, normal color. Absent: rash Course Vital Signs 05/15/17 00:10 Temperature 98.5 F Pulse Rate 63 Respiratory 18 Rate Blood Pressure 137/65 O2 Sat by Pulse 96 Oximetry Medical Decision Making - Medical Decision Making 81-year-old female presented emergency department for rolling on the bed, pain. Patient had CT head neck, x-ray shoulder and chest which only showed old compression fractures there is no acute findings. Will be discharged back to her residence home and return if any symptoms worsen. Disposition Clinical Impression: Fall, Head injury, Shoulder contusion, Neck pain Disposition: HOME SELF-CARE Condition: Stable Instructions: Head Injury (ED), Contusion in Adults (ED) Additional Instructions: Please return to the Emergency Department if symptoms worsen or any other concerns. Referrals: Souleymane Olguin DO [Primary Care Provider] - 1-2 days Time of Disposition: 01:38
--- NOTE | 2017-05-15 01:25 | CT ---
EXAMINATION TYPE: CT brain justin womack DATE OF EXAM: 05/15/2017 COMPARISON: NONE HISTORY: fall from bed and hit night stand CT DLP: 1423.10 mGycm Automated exposure control for dose reduction was used. TECHNIQUE: CT scan of the head and cervical spine are performed without contrast. FINDINGS: There is cerebral cortical atrophy. There is no mass effect nor midline shift. There is n o sign of intracranial hemorrhage. The calvarium appears intact. Vertebra have fairly normal alignment. Posterior elements are intact. There is disc space narrowing f rom C3 to C7 with mild spurring of the endplates. Facet joints are intact. The skull base is intact. IMPRESSION: Cerebral atrophy. No acute intracranial abnormality. Mild spondylotic changes in the cervical spine. No fracture.
--- NOTE | 2017-05-15 01:32 | XR ---
EXAMINATION TYPE: XR chest 2V DATE OF EXAM: 05/15/2017 COMPARISON: 11/09/2016 HISTORY: Cough and chest pain TECHNIQUE: Frontal and lateral views of the chest are obtained. FINDINGS: There is no heart failure nor confluent pneumonic infiltrate. Thoracic aorta is atheromato us. There is no sign of pleural effusion. There is osteopenia with anterior wedging of several thorac ic vertebra. IMPRESSION: No active cardiopulmonary disease. There is clearing of some atelectasis at left lung ba se compared to old exam. Multiple old compression fractures.
--- NOTE | 2017-05-15 01:32 | XR ---
EXAMINATION TYPE: XR shoulder complete LT DATE OF EXAM: 05/15/2017 COMPARISON: NONE HISTORY: Pain TECHNIQUE: 3 views FINDINGS: There is some spurring at the shoulder joint. I see no fracture nor dislocation. IMPRESSION: No acute abnormality of the left shoulder. No fracture seen.
[2017-05-15 02:27] VITALS: BP 114/55; PULSE 64; RESP 16
== END 2017-05-15 02:36 | disposition home or self-care (01) ==
LOC: EC 00:06
DX: S40.012A Contusion of left shoulder, initial encounter (principal); S09.90XA Unspecified injury of head, initial encounter; M54.2 Cervicalgia; G40.909 Epilepsy, unspecified, not intractable, without status epilepticus; Z87.891 Personal history of nicotine dependence; Z79.82 Long term (current) use of aspirin; Z79.899 Other long term (current) drug therapy; Z88.1 Allergy status to other antibiotic agents; Z91.018 Allergy to other foods; Z91.09 Other allergy status, other than to drugs and biological substances; W06.XXXA Fall from bed, initial encounter
CPT/HCPCS: 70450; 71020; 72125; 93005; 99284

== ENCOUNTER 2017-06-07 01:11 | Inpatient (IN) | payer MEDICARE ==
[2017-06-07] MEDS ORDERED: SODIUM CHLORIDE 0.9% 1,000 ML IV ONE (01:42)
[2017-06-07 02:10] LABS: Basophils # (A) 0.1 k/uL (0-0.2); Basophils % (A) 1 %; CH 28.8; CHCM 33.3; Eosinophils # (A) 0.5 k/uL (0-0.7); Eosinophils % (A) 7 %; HDW 2.49; Luc # (Auto) 0.09; Luc % (Auto) 1; Lymphocytes # (A) 1.5 k/uL (1.0-4.8); Lymphocytes % (A) 23 %; MCH 28.5 pg (25.0-35.0); MCHC 32.7 g/dL (31.0-37.0); Mean Platelet Volume 8.1; Monocytes # (A) 0.4 k/uL (0-1.0); Monocytes % (A) 7 %; Neutrophils # (A) 4.1 k/uL (1.3-7.7); Neutrophils % (A) 61 %; RBC 3.22 m/uL (3.80-5.40); RDW 13.5 % (11.5-15.5); WBC 6.7 k/uL (3.8-10.6); WBC (Perox) 7.48
[2017-06-07 02:18] LABS: HGB 9.2 gm/dL (11.4-16.0); MCV 86.9 fL (80.0-100.0)
[2017-06-07 02:19] LABS: ALT 31 U/L (9-52); AST 23 U/L (14-36); Alkaline Phosphatase 115 U/L (38-126); Anion Gap 10 mmol/L; Blood Urea Nitrogen 13 mg/dL (7-17); Calcium 8.8 mg/dL (8.4-10.2); Carbon Dioxide 20 mmol/L (22-30); Chloride 97 mmol/L (98-107); Glucose 100 mg/dL (74-99); Magnesium 1.5 mg/dL (1.6-2.3); Non-African American GFR(MDRD) >60 (>60 ml/min/1.73 sqM); Sodium 127 mmol/L (137-145); Total Bilirubin 0.5 mg/dL (0.2-1.3); Total Protein 6.3 g/dL (6.3-8.2)
--- NOTE | 2017-06-07 02:20 | ED ---
Fall HPI - General Chief Complaint: Fall Stated Complaint: Fall,hip & shoulder pain Source: EMS, RN notes reviewed, old records reviewed Mode of arrival: EMS - History of Present Illness Initial Comments: Patient is an 81-year-old female presents emergency Department chief complaint of multiple falls yesterday and today. Patient was called the EMS earlier today for a fall. She refused to be seen at that time. She reports that she thinks that she may have tripped today to cause her fall. She complained of some right shoulder and right hip pain to the EMS. She was able to ambulate after they came to her. Patient reports that she has been having some increased shortness of breath. Denies any changes in bowel movements or urination. She denies any specific chest pain at this time. When daughters arrived to the emergency department they related to nursing staff the patient had a seizure episode yesterday. She typically takes Keppra. They report that after the seizure episode patient was stabilized, they stated that patient was acting appropriate, they felt that she didn't need to be seen at that time. - Related Data Home Medications Medication Instructions Recorded Confirmed Acetaminophen Tab [Tylenol Tab] 500 mg PO Q6H PRN 09/02/16 05/15/17 Aspirin EC [Ecotrin Low Dose] 81 mg PO DAILY@89909/02/16 05/15/17 Atorvastatin [Lipitor] 40 mg PO HS@192909/02/16 05/15/17 Cholecalciferol [Vitamin D3] 1,000 unit PO DAILY@89909/02/16 05/15/17 Escitalopram [Lexapro] 15 mg PO DAILY@89909/02/16 05/15/17 Hydrocortisone Valerate 1 applic TOPICAL BID PRN 09/02/16 05/15/17 LORazepam [Ativan] 0.25 mg PO BID@899,192909/02/16 05/15/17 Metoprolol Tartrate [Lopressor] 25 mg PO BID@899,192909/02/16 05/15/17 Omeprazole 20 mg PO BID@899,192909/02/16 05/15/17 Rivastigmine Tartrate [Exelon] 1.5 mg PO AC-BID@899,192909/02/16 05/15/17 amLODIPine [Norvasc] 5 mg PO DAILY@0900 09/02/16 05/15/17 levETIRAcetam [Keppra] 500 mg PO BID@0900,1930 09/02/16 05/15/17 Allergies Allergy/AdvReac Type Severity Reaction Status Date / Time cat dander Allergy Unknown Verified 05/15/17 00:15 erythromycin base Allergy Unknown Verified 05/15/17 00:15 [From Erythrocin] watermelon Allergy Unknown Verified 05/15/17 00:15 Review of Systems ROS Statement: Those systems with pertinent positive or pertinent negative responses have been documented in the HPI. ROS Other: All systems not noted in ROS Statement are negative. Past Medical History Past Medical History: CVA/TIA, Seizure Disorder, Syncope History of Any Multi-Drug Resistant Organisms: None Reported Past Surgical History: No Surgical Hx Reported Additional Past Surgical History / Comment(s): cataract Past Psychological History: No Psychological Hx Reported, Anxiety Smoking Status: Former smoker Past Alcohol Use History: Occasional Past Drug Use History: None Reported General Exam - General Exam Comments Initial Comments: This is a 81-year-old female. Patient is somewhat confused. Patient does not know the month, does not location and year. Limitations: altered mental status General appearance: alert, in no apparent distress Head exam: Present: atraumatic, normocephalic, normal inspection Eye exam: Present: normal appearance, PERRL, EOMI. Absent: scleral icterus, conjunctival injection, periorbital swelling ENT exam: Present: normal exam, mucous membranes moist Neck exam: Present: normal inspection, tenderness (She reports tenderness all patient over the neck.). Absent: meningismus, lymphadenopathy Respiratory exam: Present: wheezes (Patient has significant wheezing bilaterally.). Absent: normal lung sounds bilaterally, respiratory distress, rales, rhonchi, stridor Cardiovascular Exam: Present: regular rate, normal rhythm, normal heart sounds. Absent: systolic murmur, diastolic murmur, rubs, gallop, clicks GI/Abdominal exam: Present: soft, normal bowel sounds. Absent: distended, tenderness, guarding, rebound, rigid Extremities exam: Present: normal inspection, full ROM, normal capillary refill , other (Patient has bilateral full range of motion of her arms and shoulders. She does have some tenderness to palpation over the left and right shoulder.). Absent: tenderness, pedal edema, joint swelling, calf tenderness Back exam: Present: normal inspection Neurological exam: Present: alert, oriented X3, CN II-XII intact Psychiatric exam: Present: normal affect, normal mood Skin exam: Present: warm, dry, intact, normal color. Absent: rash Course Vital Signs 06/07/17 06/07/17 01:15 03:44 Temperature 97.4 F L Pulse Rate 59 L 60 Respiratory 20 Rate Blood Pressure 148/69 O2 Sat by Pulse 95 Oximetry Medical Decision Making - Medical Decision Making 81-year-old female presents emergency Department chief complaint multiple falls and weakness episodes. Patient denies any worsening shortness of breath chest pain or any other symptoms at this time. She's woke up on the floor multiple times. She also had a seizure episode yesterday. She is managed on Keppra. I did draw a Keppra level is will be sent out. At this time patient's labwork was reviewed, there is a low hemoglobin of 9.2. This is a 2 unit decrease since her previous lab work here 1 month ago. Patient fecal occult was negative. White blood cell count is within normal limits. Patient had x-rays of her back, CT of her brain and C-spine. CT brain was negative for any abnormalities. C-spine and back x-ray shows multiple compression fractures. Pelvis x-ray also shows a questionable right pubic rami fracture. This could' ve been acute from today however could've been related to any of the previous fall she has had in the past week. At this time we'll admit the patient for the compression fractures, anemia, and weakness due to and multiple falls. And is in no per the family that patient typically needs to have a bedside commode, as well as has occasional difficulty in swallowing. Family requests that she has difficulty swallowing pills, but has her take her time when administering them. - Lab Data Result diagrams: 06/07/17 01:53 06/07/17 01:53 Lab Results 06/07/17 06/07/17 06/07/17 Range/Units 01:53 01:53 01:53 WBC 6.7 (3.8-10.6) k/uL RBC 3.22 L (3.80-5.40) m/uL Hgb 9.2 L D (11.4-16.0) gm/dL Hct 28.0 L (34.0-46.0) % MCV 86.9 D (80.0-100.0) fL MCH 28.5 (25.0-35.0) pg MCHC 32.7 (31.0-37.0) g/dL RDW 13.5 (11.5-15.5) % Plt Count 472 H (150-450) k/uL Neutrophils % 61 % Lymphocytes % 23 % Monocytes % 7 % Eosinophils % 7 % Basophils % 1 % Neutrophils # 4.1 (1.3-7.7) k/uL Lymphocytes # 1.5 (1.0-4.8) k/uL Monocytes # 0.4 (0-1.0) k/uL Eosinophils # 0.5 (0-0.7) k/uL Basophils # 0.1 (0-0.2) k/uL PT 11.1 (9.0-12.0) sec INR 1.1 (<1.2) APTT 25.9 (22.0-30.0) sec Sodium 127 L (137-145) mmol/L Potassium 4.0 (3.5-5.1) mmol/L Chloride 97 L (98-107) mmol/L Carbon Dioxide 20 L (22-30) mmol/L Anion Gap 10 mmol/L BUN 13 (7-17) mg/dL Creatinine 0.70 (0.52-1.04) mg/dL Est GFR (MDRD) Af Amer >60 (>60 ml/min/1.73 sqM) Est GFR (MDRD) Non-Af >60 (>60 ml/min/1.73 sqM) Glucose 100 H (74-99) mg/dL Plasma Lactic Acid Evan (0.7-2.0) mmol/L Calcium 8.8 (8.4-10.2) mg/dL Magnesium 1.5 L (1.6-2.3) mg/dL Total Bilirubin 0.5 (0.2-1.3) mg/dL AST 23 (14-36) U/L ALT 31 (9-52) U/L Alkaline Phosphatase 115 (38-126) U/L Total Creatine Kinase (30-135) U/L CK-MB (CK-2) (0.0-2.4) ng/mL CK-MB (CK-2) Rel Index Troponin I (0.000-0.034) ng/mL NT-Pro-B Natriuret Pep pg/mL Total Protein 6.3 (6.3-8.2) g/dL Albumin 3.3 L (3.5-5.0) g/dL Urine Color Urine Appearance (Clear) Urine pH (5.0-8.0) Ur Specific [place] (1.001-1.035) Urine Protein (Negative) Urine Glucose (UA) (Negative) Urine Ketones (Negative) Urine Blood (Negative) Urine Nitrite (Negative) Urine Bilirubin (Negative) Urine Urobilinogen (<2.0) mg/dL Ur Leukocyte Esterase (Negative) Urine RBC (0-5) /hpf Urine WBC (0-5) /hpf Urine Mucus (None) /hpf Stool Occult Blood (Negative) 06/07/17 06/07/17 06/07/17 Range/Units 01:53 01:53 01:53 WBC (3.8-10.6) k/uL RBC (3.80-5.40) m/uL Hgb (11.4-16.0) gm/dL Hct (34.0-46.0) % MCV (80.0-100.0) fL MCH (25.0-35.0) pg MCHC (31.0-37.0) g/dL RDW (11.5-15.5) % Plt Count (150-450) k/uL Neutrophils % % Lymphocytes % % Monocytes % % Eosinophils % % Basophils % % Neutrophils # (1.3-7.7) k/uL Lymphocytes # (1.0-4.8) k/uL Monocytes # (0-1.0) k/uL Eosinophils # (0-0.7) k/uL Basophils # (0-0.2) k/uL PT (9.0-12.0) sec INR (<1.2) APTT (22.0-30.0) sec Sodium (137-145) mmol/L Potassium (3.5-5.1) mmol/L Chloride (98-107) mmol/L Carbon Dioxide (22-30) mmol/L Anion Gap mmol/L BUN (7-17) mg/dL Creatinine (0.52-1.04) mg/dL Est GFR (MDRD) Af Amer (>60 ml/min/1.73 sqM) Est GFR (MDRD) Non-Af (>60 ml/min/1.73 sqM) Glucose (74-99) mg/dL Plasma Lactic Acid Evan 1.0 (0.7-2.0) mmol/L Calcium (8.4-10.2) mg/dL Magnesium (1.6-2.3) mg/dL Total Bilirubin (0.2-1.3) mg/dL AST (14-36) U/L ALT (9-52) U/L Alkaline Phosphatase (38-126) U/L Total Creatine Kinase 151 H (30-135) U/L CK-MB (CK-2) 1.5 (0.0-2.4) ng/mL CK-MB (CK-2) Rel Index 1.0 Troponin I <0.012 (0.000-0.034) ng/mL NT-Pro-B Natriuret Pep 334 pg/mL Total Protein (6.3-8.2) g/dL Albumin (3.5-5.0) g/dL Urine Color Urine Appearance (Clear) Urine pH (5.0-8.0) Ur Specific [place] (1.001-1.035) Urine Protein (Negative) Urine Glucose (UA) (Negative) Urine Ketones (Negative) Urine Blood (Negative) Urine Nitrite (Negative) Urine Bilirubin (Negative) Urine Urobilinogen (<2.0) mg/dL Ur Leukocyte Esterase (Negative) Urine RBC (0-5) /hpf Urine WBC (0-5) /hpf Urine Mucus (None) /hpf Stool Occult Blood (Negative) 06/07/17 06/07/17 Range/Units 03:04 03:04 WBC (3.8-10.6) k/uL RBC (3.80-5.40) m/uL Hgb (11.4-16.0) gm/dL Hct (34.0-46.0) % MCV (80.0-100.0) fL MCH (25.0-35.0) pg MCHC (31.0-37.0) g/dL RDW (11.5-15.5) % Plt Count (150-450) k/uL Neutrophils % % Lymphocytes % % Monocytes % % Eosinophils % % Basophils % % Neutrophils # (1.3-7.7) k/uL Lymphocytes # (1.0-4.8) k/uL Monocytes # (0-1.0) k/uL Eosinophils # (0-0.7) k/uL Basophils # (0-0.2) k/uL PT (9.0-12.0) sec INR (<1.2) APTT (22.0-30.0) sec Sodium (137-145) mmol/L Potassium (3.5-5.1) mmol/L Chloride (98-107) mmol/L Carbon Dioxide (22-30) mmol/L Anion Gap mmol/L BUN (7-17) mg/dL Creatinine (0.52-1.04) mg/dL Est GFR (MDRD) Af Amer (>60 ml/min/1.73 sqM) Est GFR (MDRD) Non-Af (>60 ml/min/1.73 sqM) Glucose (74-99) mg/dL Plasma Lactic Acid Evan (0.7-2.0) mmol/L Calcium (8.4-10.2) mg/dL Magnesium (1.6-2.3) mg/dL Total Bilirubin (0.2-1.3) mg/dL AST (14-36) U/L ALT (9-52) U/L Alkaline Phosphatase (38-126) U/L Total Creatine Kinase (30-135) U/L CK-MB (CK-2) (0.0-2.4) ng/mL CK-MB (CK-2) Rel Index Troponin I (0.000-0.034) ng/mL NT-Pro-B Natriuret Pep pg/mL Total Protein (6.3-8.2) g/dL Albumin (3.5-5.0) g/dL Urine Color Yellow Urine Appearance Clear (Clear) Urine pH 5.5 (5.0-8.0) Ur Specific [place] 1.018 (1.001-1.035) Urine Protein Trace H (Negative) Urine Glucose (UA) Negative (Negative) Urine Ketones Negative (Negative) Urine Blood Trace H (Negative) Urine Nitrite Negative (Negative) Urine Bilirubin Negative (Negative) Urine Urobilinogen <2.0 (<2.0) mg/dL Ur Leukocyte Esterase Negative (Negative) Urine RBC 2 (0-5) /hpf Urine WBC <1 (0-5) /hpf Urine Mucus Rare H (None) /hpf Stool Occult Blood Negative (Negative) 06/07/17 03:06EKG shows sinus bradycardia, left anterior fascicular block. Ventricular rate 57 bpm. OH interval 146 ms. QRS duration [address] elevation or T-wave inversion. - Radiology Data Radiology results: report reviewed Xray of the right humerus shows no acute abnormality of the right humerus. Chest x-ray shows osteopenia, this compression deformity with loss of height of L1 and L2, and T12, T11 and T9 and T8 and T7. There is no definite paraspinal mass. Posterior elements appear intact, vertebral show anterior wedging with up to 70% loss of height anteriorly. There is overall impression is numerous compression fractures appear to relate to osteoporosis. Chest x-ray shows no acute cardiopulmonary disease, multiple people us to pruritic type threat sick compression fractures noted. No significant change compared to previous exams. CT shows cervical atrophy, no acute intracranial normality. No changes compared to old exam. CT of the cervical spine show spondylitic changes in the cervical spine. Weather changes in the lamina of C3 on the left side of progress compared to previous exam raises suspicion for a neoplastic process. There are some soft tissue posterior component. I would consider possibility of chronic fracture. This could be a chronic pedicle fracture. Pathological fracture from neoplastic process should also be considered. MR scan would be helpful for further evaluation if clinically indicated Help and pelvis x-ray obtained. No evidence of hip fracture noted. There is a possible right pubic rami fracture. Disposition Clinical Impression: Compression fracture of body of thoracic vertebra, Frequent falls, Anemia, Weakness, Seizure disorder, Pubic ramus fracture Disposition: ADMITTED IP TO THIS HOSP Condition: Stable Referrals: Souleymane Olguin DO [Primary Care Provider] - 1-2 days Time of Disposition: 03:34
[2017-06-07 02:24] LABS: INR 1.1 (<1.2); Partial Thromboplastin Time 25.9 sec (22.0-30.0); Prothrombin Time 11.1 sec (9.0-12.0)
[2017-06-07 02:30] LABS: Creatine Kinase 151 U/L (30-135)
--- NOTE | 2017-06-07 02:38 | CT ---
EXAMINATION TYPE: CT brain justin wo con DATE OF EXAM: 06/07/2017 COMPARISON: 05/15/2017 HISTORY: fall CT DLP: head 1100.10 body 362.90 mGycm Automated exposure control for dose reduction was used. TECHNIQUE: CT scan of the head and cervical spine are performed without contrast. FINDINGS: There is cerebral cortical atrophy. There is no mass effect nor midline shift. There is n o sign of intracranial hemorrhage. The calvarium appears intact. Exam is limited slightly by motion. Cervical vertebra have fairly normal alignment. There is degenerative disc space narrowing from C3 to C7 where there is mild spurring of the endplates. There is some lucency in the lamina of C3 on the l eft side. There appears to be increased soft tissue density posterior to the pedicle of C3 on the lef t side. The skull base is intact. IMPRESSION: Cerebral atrophy. No acute intracranial abnormality. No change compared to old exam. Spondylotic changes in the cervical spine. Lytic changes in the lamina of C3 on the left side appear s to have progressed compared to last exam and raises the possibility of a neoplastic process. There is some soft tissue posterior component. I would consider the possibility of chronic fracture. This c ould be a chronic pedicle fracture. Pathologic fracture from neoplastic process should also be consid ered. MR scan would be helpful for further evaluation if clinically indicated.
--- NOTE | 2017-06-07 02:41 | XR ---
EXAMINATION TYPE: XR Hip RT and AP Pelvis DATE OF EXAM: 06/07/2017 COMPARISON: NONE HISTORY: Pain TECHNIQUE: A single AP view of the pelvis is obtained. Two views of the right hip are obtained. FINDINGS: There is irregular appearance of the right superior and inferior pubic rami suspicious for nondisplaced fractures. The proximal right femur appears intact. Sacroiliac joints appear intact. CONCLUSION: No hip fracture seen. Possible right pubic rami fractures.
--- NOTE | 2017-06-07 02:42 | XR ---
EXAMINATION TYPE: XR chest 2V DATE OF EXAM: 06/07/2017 COMPARISON: 05/15/2017 HISTORY: Weakness TECHNIQUE: Frontal and lateral views of the chest are obtained. FINDINGS: There is no heart failure nor confluent pneumonic infiltrate. Costophrenic angles are angie r. Thoracic aorta is atheromatous. There is osteopenia with wedging of numerous thoracic vertebra. IMPRESSION: No active cardiopulmonary disease. Multiple osteoporotic type thoracic compression fract ures. No significant change compared to last exam.
[2017-06-07 02:43] LABS: Creatine Kinase MB 1.5 ng/mL (0.0-2.4); Troponin I <0.012 ng/mL (0.000-0.034)
--- NOTE | 2017-06-07 02:44 | XR ---
EXAMINATION TYPE: XR thoracic spine 2V DATE OF EXAM: 06/07/2017 COMPARISON: NONE HISTORY: Back pain TECHNIQUE: 3 views FINDINGS: There is osteopenia. There is compression deformity with loss of height of L1-L2 and T12 T1 1 T9 and T8 T7 T6-3-4. There is no definite paraspinal mass. Posterior elements appear intact. Verteb ra show anterior wedging with up to 70% loss of height anteriorly. IMPRESSION: Numerous compression fractures appear to relate to osteoporosis.
--- NOTE | 2017-06-07 02:46 | XR ---
EXAMINATION TYPE: XR humerus RT DATE OF EXAM: 06/07/2017 COMPARISON: NONE HISTORY: Pain after a fall TECHNIQUE: 2 views FINDINGS: There is osteopenia. Elbow joint appears intact. Shoulder joint appears intact. I see no fr acture. IMPRESSION: No acute abnormality of the right humerus.
[2017-06-07] MEDS ORDERED: IPRATROPIUM-ALBUTEROL 3 ML NEB INHALATION STA (03:17)
[2017-06-07] MEDS ORDERED: MORPHINE SULFATE 10 MG/ML SYRINGE IVP STA (03:18)
[2017-06-07 03:32] LABS: Appearance,Urine Clear (Clear); Bilirubin,Urine Negative (Negative); Glucose,Urine (UA) Negative (Negative); Ketones,Urine Negative (Negative); Leukocyte Esterase,Urine Negative (Negative); Mucus,Urine Rare /hpf; Nitrite,Urine Negative (Negative); PH, Urine 5.5 (5.0-8.0); Particle Count 1833; Protein,Urine Trace (Negative); RBC,Urine 2 /hpf (0-5); Specific Gravity,Urine 1.018 (1.001-1.035); UA Billing (MACRO vs. MICRO) MICRO; Urobilinogen,Urine <2.0 mg/dL (<2.0); WBC,Urine <1 /hpf (0-5)
[2017-06-07] MEDS ORDERED: NALOXONE 0.4 MG/ML 1 ML VIAL IV PRN (03:35)
[2017-06-07] MEDS ORDERED: IBUPROFEN 400 MG TAB PO PRN (03:35)
[2017-06-07] MEDS ORDERED: BISACODYL 5 MG TABLET.DR PO PRN (03:35)
[2017-06-07] MEDS ORDERED: ONDANSETRON 4 MG/2 ML VIAL IVP PRN (03:35)
[2017-06-07] MEDS ORDERED: LORazepam 2 MG/ML INJ IV PRN (03:35)
[2017-06-07] MEDS ORDERED: MORPHINE SULFATE 10 MG/ML SYRINGE IV PRN (03:35)
[2017-06-07 05:17] VITALS: BMI 26.6
[2017-06-07] MEDS: SODIUM CHLORIDE 0.9% 1,000 ML IV SCH ×2 (05:55→19:29)
[2017-06-07] MEDS: Acetaminophen-Codeine 300-30mg TAB PO PRN ×2 (08:20→21:17)
[2017-06-07] MEDS ORDERED: PANTOPRAZOLE 40 MG/10 ML VIAL IV SCH (09:00)
[2017-06-07] MEDS ORDERED: HYDROCORTISONE VALERATE TOPICAL PRN (09:04)
[2017-06-07] MEDS ORDERED: MORPHINE SULFATE 4 MG/ML SYRINGE IV PRN (14:42)
--- NOTE | 2017-06-07 16:28 | HP ---
HISTORY AND PHYSICAL DATE OF ADMISSION: June 07, 2017. PRESENT COMPLAINT: Fall. HISTORY OF PRESENTING COMPLAINT: This is an 81-year-old patient of Dr. Olguin whose chronic stable medical conditions include dementia, hypertension, anxiety. The patient is a resident of [facility]. The patient was sent in from multiple falls. There is a note from the family about this could have been seizures. The patient is lying in bed, comfortable, does not know why she is here. She has some pain when she moves about, was comfortable at rest otherwise. The patient ate about 70% of her meals per the nursing staff. The patient is not able to give much of a history. In the ER, patient is found to have some compression fractures in the spine and possible fracture of the rami on the right side. REVIEW OF SYSTEMS: CONSTITUTIONAL: None. HEENT none. Respiratory none. Cardiovascular none. Gastrointestinal none. Genitourinary: None. MUSCULOSKELETAL: Pain in the hip and lower back. Dermatological none. Hematologic and lymphatic none. Psychiatry forgetful. Neurological: Questionable seizure and having falls. PAST MEDICAL HISTORY: Of questionable stroke, dementia, hypertension, seizure, anxiety, macular degeneration. PAST SURGICAL HISTORY: Cataract surgery. SOCIAL HISTORY: Does smoke in the past. Alcohol occasional. Resident of [facility]. Does use a cane. FAMILY HISTORY: Patient does not remember. HOME MEDICATIONS: 1. Keppra 500 mg p.o. b.i.d. 2. Exelon 1.5 mg a.c. b.i.d. 3. Omeprazole 20 mg b.i.d. 4. Hydrocortisone topical b.i.d. p.r.n. 5. Vitamin D3 1000 units p.o. daily. 6. Lipitor 40 mg q.h.s. 7. Tylenol 500 mg q.6h p.r.n. 8. Lopressor 25 p.o. b.i.d. 9. Ativan 0.25 p.o. b.i.d. 10.Lexapro 50 mg p.o. daily. 11.Aspirin 81 mg p.o. daily. 12.Norvasc 5 mg p.o. daily. ALLERGIES: TO CAT DANDER. ERYTHROMYCIN, WATERMELON. PHYSICAL EXAMINATION: Vital signs on presentation temperature 97.4, pulse 59, respiratory 20, blood pressure 140/69, pulse ox 95% on room air. GENERAL APPEARANCE: Lying in bed, comfortable. Eyes pupils equal. Conjunctivae normal. HEENT: Oral cavity normal. Neck JVD not raised. Mass not palpable. Respiratory effort lungs are clear. Cardiovascular first and second sounds normal. No edema. ABDOMEN: Soft, nontender. Liver and spleen not palpable. Lymphatics : No lymph nodes palpable in the neck and axillae. Psychiatry: Patient thinks she is at [employer] [facility]. She got the year right. She does not know why she is here or who brought her here. INVESTIGATIONS: White count 6.7, hemoglobin 9.2, platelets 472. Sodium 127, bicarb 20, BUN 13, creatinine 0.70. X-rays spine shows fracture of T12, 11, 9, 8, 6, 3 and 4 and also x- ray of the hip shows possible fracture of the superior and inferior pubic rami on the right side. ASSESSMENT: 1. Multiple falls in the patient. At this point cause indeterminate. The patient has some compression fractures. The most of these appear to be chronic, acute cannot be ruled. Need to also rule out orthostatic. 2. Compression fractures of T12, T11, T9, T8, T6 and C3-C4 in the setting of osteoporosis. 3. Possible acute right superior inferior pubic rami fracture. 4. Hypomagnesemia. 5. Metabolic acidosis. 6. Hyponatremia. We will check serum osmolality. 7. Reactive thrombocytosis. 8. Microcytic anemia cause unknown at this point. 9. Alzheimer's dementia late onset type. 10.Chronic seizure disorder. PLAN: We will check patient's serum osmolality and start the patient on salt tablets. We will also add sodium bicarb tablets. Magnesium will be replaced. We will get an orthopedic opinion, though I do not think she is a candidate for surgical opinion. We will need a brace for stability. PT/OT is consulted. Fall precautions are done. Will DC any sedative medication like Ativan and morphine at this point. Patient is rather calm. Tylenol 3 for pain medication. Other home medications resumed. We will also stop the Aricept because of the side effects that is contributing to the fall. Neuro checks are in place. No family is at the bedside. manager perioperative is involved. Copy to Dr. Olguin. MMEVANL / IJN: [id number] /
[2017-06-07] MEDS: levETIRAcetam 500 MG TAB PO SCH (21:13)
[2017-06-07] MEDS: ATORVASTATIN 40 MG TAB PO SCH (21:14)
[2017-06-07] MEDS: METOPROLOL TARTRATE 25 MG TAB PO SCH (21:14)
[2017-06-07] MEDS: PANTOPRAZOLE 40 MG TABLET PO SCH (21:14)
[2017-06-08 07:56] LABS: Basophils % (A) 0 %; CH 29.6; CHCM 32.4; Eosinophils # (A) 0.3 k/uL (0-0.7); Eosinophils % (A) 6 %; HCT 35.1 % (34.0-46.0); HDW 2.38; HGB 11.2 gm/dL (11.4-16.0); Luc # (Auto) 0.04; Luc % (Auto) 1; Lymphocytes # (A) 0.8 k/uL (1.0-4.8); Lymphocytes % (A) 13 %; MCH 29.4 pg (25.0-35.0); MCV 91.7 fL (80.0-100.0); Mean Platelet Volume 7.8; Monocytes # (A) 0.3 k/uL (0-1.0); Monocytes % (A) 4 %; Neutrophils # (A) 4.4 k/uL (1.3-7.7); Neutrophils % (A) 76 %; RBC 3.83 m/uL (3.80-5.40); RDW 14.1 % (11.5-15.5); WBC 5.8 k/uL (3.8-10.6); WBC (Perox) 6.01
[2017-06-08 08:11] LABS: Anion Gap 8 mmol/L; Blood Urea Nitrogen 5 mg/dL (7-17); Calcium 8.6 mg/dL (8.4-10.2); Carbon Dioxide 22 mmol/L (22-30); Chloride 101 mmol/L (98-107); Glucose 87 mg/dL (74-99); Non-African American GFR(MDRD) >60 (>60 ml/min/1.73 sqM); Potassium 3.9 mmol/L (3.5-5.1); Sodium 131 mmol/L (137-145)
[2017-06-08] MEDS ORDERED: DONEPEZIL 10 MG TAB PO SCH (09:00)
--- NOTE | 2017-06-08 09:16 | P.CNOR ---
[facility] Consult date: 06/08/17 Requesting physician: Miguel Long Consult reason: fracture (Multiple thoracic and lumbar compression fractures), other (C3 left-sided lamina lucency with lytic change) History of present illness: Patient is a very pleasant 81-year-old female who is seen and examined at the bedside after we are consulted for further evaluation for her cervical spine, thoracic spine, and possible right-sided pubic rami fractures. Patient states at the bedside she has been falling more frequently over the past 3 months. She states she begins to feel lightheaded and that she must grab on to something or she will fall. Multiple times she has not been able to catch herself prior to falling. At the bedside she denies any cervical pain, thoracic pain, or lumbar pain. She has no pain in her pelvis. She states it wasn't for being required to be here for further evaluation she would've left the hospital. She currently does not have any complaints of the bedside. After her her most recent fall she was brought to [facility]. Multiple imaging modalities were taken including the hip and pelvis, thoracic spine, CT of head, and humerus. Multiple thoracolumbar compression fracture deformities as well as and C3 left-sided pedicle changes were found. Patient is being seen and examined by medicine. Past Medical History Past Medical History: CVA/TIA, Dementia, Hypertension, Seizure Disorder, Syncope Additional Past Medical History / Comment(s): frequent falls, right eye macular degeneration History of Any Multi-Drug Resistant Organisms: None Reported Past Surgical History: No Surgical Hx Reported Additional Past Surgical History / Comment(s): cataract Past Anesthesia/Blood Transfusion Reactions: No Reported Reaction Past Psychological History: Anxiety Smoking Status: Former smoker Past Alcohol Use History: Occasional Past Drug Use History: None Reported - Past Family History Father History Unknown: Yes Medications and Allergies Home Medications Medication Instructions Recorded Confirmed Type Acetaminophen Tab [Tylenol Tab] 500 mg PO Q6H PRN 09/02/16 06/07/17 History Aspirin EC [Ecotrin Low Dose] 81 mg PO DAILY@0900 09/02/16 06/07/17 History Atorvastatin [Lipitor] 40 mg PO HS@1930 09/02/16 06/07/17 History Cholecalciferol [Vitamin D3] 1,000 unit PO DAILY@0909/02/16 06/07/17 History Escitalopram [Lexapro] 15 mg PO DAILY@0909/02/16 06/07/17 History Hydrocortisone Valerate 1 applic TOPICAL BID PRN 09/02/16 06/07/17 History LORazepam [Ativan] 0.25 mg PO BID@899,192909/02/16 06/07/17 History Metoprolol Tartrate [Lopressor] 25 mg PO BID@09,192909/02/16 06/07/17 History Omeprazole 20 mg PO BID@09,192909/02/16 06/07/17 History Rivastigmine Tartrate [Exelon] 1.5 mg PO AC-BID@899,192909/02/16 06/07/17 History amLODIPine [Norvasc] 5 mg PO DAILY@0909/02/16 06/07/17 History levETIRAcetam [Keppra] 500 mg PO BID@0900,192909/02/16 06/07/17 History Allergies Allergy/AdvReac Type Severity Reaction Status Date / Time cat dander Allergy Unknown Verified 05/15/17 00:15 erythromycin base Allergy Unknown Verified 05/15/17 00:15 [From Erythrocin] watermelon Allergy Unknown Verified 05/15/17 00:15 Physical Examination Physical exam: Patient is awake, alert, and oriented 3 Vital signs stable Good chest excursion with deep inspiration and expiration Abdomen soft nontender Examination of the cervical spine reveals skin is intact with no abrasions, lacerations, or bruises; no erythema, purulence or signs of infection Full range of motion of the cervical spine with adequate flexion, extension, and bilateral rotation Cell Technician strength, thumb strength, interosseous strength, biceps strength, triceps strength, and shoulder strength positive sustained bilaterally Upper extremity strength 5/5 bilaterally No upper extremity hyperreflexia bilaterally Examination of lumbar spine reveals skin is intact with no abrasions, lacerations, or bruises; no erythema, purulence or signs of infection Dorsiflexion, plantarflexion, and extensor hallucis longus positive sustained bilaterally Lower extremity strength 5/5 bilaterally Patient is able to move her legs independently throughout range of motion without significant difficulty No lower extremity hyperreflexia bilaterally Straight leg test negative bilateral lower extremities Negative Lasegue's test bilaterally No signs or symptoms of DVT; no calf pain No pain with internal and external rotation of the hips bilaterally Neurovascularly intact Results Pertinent studies: CT of the cervical spine: C3-7 degenerative disc disease with anterior osteophytic spurring; C3-4 and C4-5 posterior spurring; C3 lamina lucency on the left with lytic changes that could be possible neoplastic would also consider chronic pedicle fracture X-ray of the hip and pelvis: Possible right-sided superior inferior pubic rami fracture; no evidence of hip fracture X-rays the thoracic spine: Multiple compression fracture deformities at T3, T4, T6, T7, T8, T9, T11, T12, L1, L2 most likely due to osteopenia; degenerative scoliosis of the thoracolumbar spine - Labs Labs: Abnormal Lab Results - Last 24 Hours (Table) 06/08/17 06/08/17 Range/Units 07:10 07:10 Hgb 11.2 L (11.4-16.0) gm/dL Lymphocytes # 0.8 L (1.0-4.8) k/uL Sodium 131 L (137-145) mmol/L BUN 5 L (7-17) mg/dL Microbiology - Last 24 Hours (Table) 06/07/17 01:53 Blood Culture - Preliminary Blood No Growth after 24 hours H & H 06/07/17 06/08/17 Range/Units 01:53 07:10 Hgb 9.2 L D 11.2 L (11.4-16.0) gm/dL Hct 28.0 L 35.1 (34.0-46.0) % Coagulation 06/07/17 Range/Units 01:53 INR 1.1 (<1.2) Result Diagrams: 06/08/17 07:10 06/08/17 07:10 Assessment and Plan (1) Lumbar compression fracture Current Visit: Yes Status: Acute Code(s): S32.000A - WEDGE COMPRESSION FRACTURE OF UNSP LUMBAR VERTEBRA, INIT SNOMED Code(s): 177288925 (2) Degenerative disc disease, cervical Current Visit: Yes Status: Acute Code(s): M50.30 - OTHER CERVICAL DISC DEGENERATION, UNSP CERVICAL REGION SNOMED Code(s): 15132870 (3) Degenerative scoliosis Current Visit: Yes Status: Acute Code(s): M41.9 - SCOLIOSIS, UNSPECIFIED SNOMED Code(s): 898733517 (4) Osteopenia determined by x-ray Current Visit: Yes Status: Acute Code(s): M85.80 - OTH DISRD OF BONE DENSITY AND STRUCTURE, UNSPECIFIED SITE SNOMED Code(s): 051603266 (5) Compression fracture of body of thoracic vertebra Current Visit: Yes Status: Acute Code(s): M48.54XA - COLLAPSED VERTEBRA, NEC , THORACIC REGION, INIT SNOMED Code(s): 116801124 (6) Fall Current Visit: No Status: Acute Code(s): W19.XXXA - UNSPECIFIED FALL, INITIAL ENCOUNTER SNOMED Code(s): 6285228 Plan: Assessment: C3 lamina lucency on the left with lytic changes that could be possible neoplastic disorder but would also consider chronic pedicle fracture C3-7 degenerative disc disease Multiple thoracolumbar compression fracture deformities indeterminate age at T3 , T4, T6, T7, T8, T9, T11, T12, L1, and L2 Thoracolumbar osteopenia History of multiple falls Thoracolumbar degenerative scoliosis Plan: 1. After further evaluation the patient, reviewing imaging, discussion with Dr. Homar Mosher, and discussion with the patient, we will currently planned to obtain an MRI of the cervical spine and thoracic spine with and without contrast for further evaluation. Patient does have evidence of C3 lamina lucency on the left with lytic changes that could be possible neoplastic disorder but would also consider chronic pedicle fracture. She has a significant number of multiple compression fracture deformities of thoracolumbar spine of indeterminate age. Given the significant changes in her cervical spine and thoracic spine, which feel it is necessary for further evaluation into the lytic changes of C3 as well as her multiple compression fracture deformities. Following the results of these MRIs, we'll follow-up with appropriate plan of care. We'll continue to follow patient closely 2. Medicine will continue to follow the patient Time with Patient: Less than 30
[2017-06-08] MEDS: amLODIPine 5 MG TAB PO SCH (09:29)
[2017-06-08] MEDS: levETIRAcetam 500 MG TAB PO SCH ×2 (09:29→19:49)
[2017-06-08] MEDS: ASPIRIN 81 MG PO SCH (09:29)
[2017-06-08] MEDS: CHOLECALCIFEROL 1,000 UNIT TAB PO SCH (09:29)
[2017-06-08] MEDS: ENOXAPARIN 40 MG/0.4 ML SYRINGE SQ SCH (09:29)
[2017-06-08] MEDS: PANTOPRAZOLE 40 MG TABLET PO SCH ×2 (09:30→19:49)
[2017-06-08] MEDS: METOPROLOL TARTRATE 25 MG TAB PO SCH ×2 (09:30→19:49)
[2017-06-08] MEDS: ESCITALOPRAM 5 MG TAB PO SCH (09:30)
[2017-06-08] MEDS: Acetaminophen-Codeine 300-30mg TAB PO PRN (09:36)
--- NOTE | 2017-06-08 15:35 | P.PN ---
Progress Note - Text Progress Note Date: 06/08/17 DATE OF SERVICE: 06/08/2017 PRESENTING COMPLAINT: Fall HISTORY OF PRESENT ILLNESS: 81-year-old female who was a resident of [facility] presents to the emergency department after sustaining multiple falls. Imaging revealed some compression fractures in the spine possible fractions of pubic rami on the right side. INTERVAL HISTORY: 06/08/2017: Patient seen in follow-up, lying in bed appears very comfortable, eating all of her breakfast ambulatory with assistance, last BM prior to admission. States she would really like to go home. Orthopedics evaluated the patient, awaiting MRI of the cervical spine. REVIEW OF SYSTEMS: Done for constitutional ,cardiovascular, GI, pulmonary with relevant findings as above. CURRENT MEDICATIONS Tylenol No. 3, Norvasc, Lipitor, Dulcolax, Lovenox, Lexapro, Keppra, Lopressor, Zofran, Protonix. PHYSICAL EXAM VITAL SIGNS: Temperature 98.1, pulse 67, respirations 16, blood pressure 126/61, oxygen saturation 93% on room air. GENERAL APPEARANCE: Lying in bed, not in distress. EYES: Pupils equal. Conjunctiva normal. NECK: JVD not raised. Mass not palpable. RESPIRATORY: Respiratory effort normal. Lungs diminished to auscultation. CARDIOVASCULAR: First and second sounds normal. No edema. ABDOMEN: Soft. Liver and spleen not palpable. No tenderness. No mass palpable. PSYCHIATRY: Alert and oriented x3. Mood and affect normal. INVESTIGATIONS: Labs: Hemoglobin 11.2, sodium 131, BUN 5, creatinine 0.70, ASSESSMENT: -Multiple falls, cause undetermined, found to have some compression fractures, mostly chronic, however acute cannot be ruled out. -Orthostatic hypotension in a patient who sustained multiple falls. -Compression fractures of T12, T11, T9, T8, T6, and C3 through C4 in the setting of osteoporosis. -Possible acute right superior inferior pubic rami fracture. -Hypomagnesemia, resolved -Metabolic acidosis. -Hyponatremia, check serum osmolality. -Reactive thrombocytosis. -Microcytic anemia cause unknown at this point. -Also was dementia late onset type. -Chronic seizure disorder. PLAN: Orthopedics evaluated the patient awaiting an MRI to further evaluate C3 lamina lucency which shows some lytic changes that might be either need a neoplastic or could be chronic. Discharge planning for the next 24-48 hours, plan of care discussed at the bedside with the patient she is in agreement. We will follow closely. JAVASCRIPT FRONT END DEVELOPER statement: Patient was seen and examined by nurse practitioner Gilda Aragon and all elements of the case discussed with attending Dr. Long
[2017-06-08] MEDS ORDERED: LORazepam 1 MG TAB PO STA (18:11)
[2017-06-08] MEDS: ATORVASTATIN 40 MG TAB PO SCH (19:49)
--- NOTE | 2017-06-08 21:14 | PN ---
PROGRESS NOTE DATE OF SERVICE: 06/08/2017. ATTENDING NOTE: Patient was seen and examined by me. I discussed with my nurse practitioner, Ms. Aragon. This is a patient who presented with fall. Has some pain, but rather doing well, tolerating a diet. Seen by orthopedics, who ordered MRI of the cervical thoracic spine. PHYSICAL EXAMINATION: Temperature 98.1, pulse 57, respirations 16, blood pressure 126/61. Lying in bed, comfortable. When I saw this patient, MRI results are pending. White count 5.8. Potassium 3.9, sodium 131. 1. Multiple compression fractures, unclear if this is acute on chronic. 2. Acute right superior inferior pubic rami fracture. 3. Hyponatremia, suspect hypoosmolar. PLAN: Await further input from Orthopedics. Follow. MMODL / IJN: [id number] /
[2017-06-09] MEDS: Acetaminophen-Codeine 300-30mg TAB PO PRN ×2 (04:45→10:55)
[2017-06-09 07:29] LABS: Basophils % (A) 0 %; CH 28.9; CHCM 32.4; Eosinophils # (A) 0.4 k/uL (0-0.7); Eosinophils % (A) 6 %; HCT 33.7 % (34.0-46.0); HDW 2.43; HGB 10.9 gm/dL (11.4-16.0); Luc # (Auto) 0.07; Luc % (Auto) 1; Lymphocytes # (A) 1.2 k/uL (1.0-4.8); Lymphocytes % (A) 18 %; MCH 29.1 pg (25.0-35.0); MCHC 32.4 g/dL (31.0-37.0); MCV 89.7 fL (80.0-100.0); Mean Platelet Volume 7.8; Monocytes # (A) 0.5 k/uL (0-1.0); Monocytes % (A) 7 %; Neutrophils # (A) 4.4 k/uL (1.3-7.7); Neutrophils % (A) 67 %; RBC 3.76 m/uL (3.80-5.40); RDW 13.8 % (11.5-15.5); WBC 6.5 k/uL (3.8-10.6); WBC (Perox) 6.63
[2017-06-09 07:42] LABS: Anion Gap 8 mmol/L; Blood Urea Nitrogen 6 mg/dL (7-17); Calcium 8.6 mg/dL (8.4-10.2); Carbon Dioxide 24 mmol/L (22-30); Chloride 97 mmol/L (98-107); Glucose 84 mg/dL (74-99); Non-African American GFR(MDRD) >60 (>60 ml/min/1.73 sqM); Sodium 129 mmol/L (137-145)
[2017-06-09] MEDS: ENOXAPARIN 40 MG/0.4 ML SYRINGE SQ SCH (09:10)
[2017-06-09] MEDS: ESCITALOPRAM 5 MG TAB PO SCH (09:10)
[2017-06-09] MEDS: ASPIRIN 81 MG PO SCH (09:10)
[2017-06-09] MEDS: levETIRAcetam 500 MG TAB PO SCH ×2 (09:11→20:19)
[2017-06-09] MEDS: CHOLECALCIFEROL 1,000 UNIT TAB PO SCH (09:12)
[2017-06-09] MEDS: PANTOPRAZOLE 40 MG TABLET PO SCH ×2 (09:12→20:19)
[2017-06-09] MEDS: amLODIPine 5 MG TAB PO SCH (10:05)
[2017-06-09] MEDS: METOPROLOL TARTRATE 25 MG TAB PO SCH ×2 (10:06→20:19)
--- NOTE | 2017-06-09 12:42 | PN ---
PROGRESS NOTE DATE OF SERVICE: 06/09/2017 PRESENTING COMPLAINT: Fall. INTERVAL HISTORY: This patient presented with fall with felt to be some chronic compression fracture of the spine and pubic rami on the right side. Pain is well controlled. Tolerating a diet. Patient is pleasantly confused, very comfortable. REVIEW OF SYSTEMS: Attempted. CURRENT MEDICATIONS: Reviewed. PHYSICAL EXAMINATION: Temperature 98.2, pulse 60, respirations 16, blood pressure 118/69, pulse ox 94% on room air. GENERAL APPEARANCE: Lying in bed, comfortable. EYES: Pupils equal, conjunctivae normal. NECK: JVD not raised, mass not palpable. RESPIRATORY: Effort normal. LUNGS: Slightly decreased breath sounds. CARDIOVASCULAR: First and second sounds normal. No edema. ABDOMEN: Soft, nontender. Liver and spleen not palpable. PSYCHIATRY: Patient able answer some simple questions. INVESTIGATIONS: White count 6.5, hemoglobin 10.9, potassium 4, sodium 129, osmolality 267. ASSESSMENT: 1. Multiple falls, multifactorial. 2. Orthostatic hypotension, possibly contributing to multiple falls. 3. Compression fracture of T12, T11, T9, T8, T6, C3 to C4 in the setting of osteoporosis, age undetermined. 4. Acute right superior and inferior pubic rami fracture, possibly. 5. Hypomagnesemia, resolved. 6. Metabolic acidosis on presentation. 7. Hyponatremia with hyposmolality. 8. Reactive thrombocytosis. 9. Macrocytic anemia cause unknown at this point. 10.Alzheimer's dementia, late onset type. 11.Chronic seizure disorder. PLAN: We will cut back on fluid intake. Will add salt tablets. PT, OT assessment is pending. Will await further input from Orthopedics and go from there. MMODL / IJN: [id number] /
[2017-06-09] MEDS: SODIUM CHLORIDE TAB 1 GM TAB PO SCH ×4 (14:07→22:01)
[2017-06-09] MEDS: ATORVASTATIN 40 MG TAB PO SCH (20:19)
[2017-06-10 07:32] LABS: Anion Gap 9 mmol/L; Blood Urea Nitrogen 9 mg/dL (7-17); Calcium 8.8 mg/dL (8.4-10.2); Carbon Dioxide 21 mmol/L (22-30); Chloride 104 mmol/L (98-107); Glucose 93 mg/dL (74-99); Non-African American GFR(MDRD) >60 (>60 ml/min/1.73 sqM); Sodium 134 mmol/L (137-145)
[2017-06-10] MEDS: ACETAMINOPHEN TAB 325 MG TAB PO PRN ×2 (09:58→21:09)
[2017-06-10] MEDS: amLODIPine 5 MG TAB PO SCH (10:35)
[2017-06-10] MEDS: ENOXAPARIN 40 MG/0.4 ML SYRINGE SQ SCH (10:35)
[2017-06-10] MEDS: CHOLECALCIFEROL 1,000 UNIT TAB PO SCH (10:35)
[2017-06-10] MEDS: ASPIRIN 81 MG PO SCH (10:35)
[2017-06-10] MEDS: levETIRAcetam 500 MG TAB PO SCH ×2 (10:36→21:06)
[2017-06-10] MEDS: ESCITALOPRAM 5 MG TAB PO SCH (10:36)
[2017-06-10] MEDS: METOPROLOL TARTRATE 25 MG TAB PO SCH ×2 (10:37→21:10)
[2017-06-10] MEDS: PANTOPRAZOLE 40 MG TABLET PO SCH ×2 (10:37→21:06)
[2017-06-10] MEDS: SODIUM CHLORIDE TAB 1 GM TAB PO SCH ×4 (10:37→21:10)
--- NOTE | 2017-06-10 17:06 | P.PN ---
Progress Note - Text Progress Note Date: 06/10/17 DATE OF SERVICE: 06/10/2017 PRESENTING COMPLAINT: Fall HISTORY OF PRESENT ILLNESS: 81-year-old female who was a resident of [facility] presents to the emergency department after sustaining multiple falls. Imaging revealed some compression fractures in the cervical spine possible fractures of pubic rami on the right side. INTERVAL HISTORY: 06/10/2017: Patient seen in follow-up, daughter at the bedside, attempting to get up with the use of a walker and standby assistance. Appears comfortable. No acute overnight events. Patient has periodic confusion her mentation waxes and wanes. Tolerating her diet, ambulatory with a walker and assistance REVIEW OF SYSTEMS: Done for constitutional ,cardiovascular, GI, pulmonary, musculoskeletal with relevant findings as above. CURRENT MEDICATIONS Tylenol No. 3, Norvasc, Lipitor, Dulcolax, Lovenox, Lexapro, Keppra, Lopressor, Zofran, Protonix. PHYSICAL EXAM VITAL SIGNS: Temperature 98.4, pulse 62, respirations 16, blood pressure 123/63, oxygen saturation 94% on room air. GENERAL APPEARANCE: Sitting up on the edge of the bed, looks confused. EYES: Pupils equal. Conjunctiva normal. NECK: JVD not raised. Mass not palpable. RESPIRATORY: Respiratory effort normal. Lungs diminished to auscultation. CARDIOVASCULAR: First and second sounds normal. No edema. ABDOMEN: Soft. Liver and spleen not palpable. No tenderness. No mass palpable. PSYCHIATRY: Able to answer simple straightforward questions, has confusion at times. Mood and affect appropriate for the situation. INVESTIGATIONS: Labs: Sodium 134 ASSESSMENT: -Multiple falls, multifactorial, found to have some compression fractures, mostly chronic. -Orthostatic hypotension in a patient who sustained multiple falls. -Compression fractures of T12, T11, T9, T8, T6, and C3 through C4 in the setting of osteoporosis, undetermined age -Possible acute right superior inferior pubic rami fracture, possible -Hypomagnesemia, resolved -Metabolic acidosis on presentation. -Hyponatremia, with hypo-osmolarity, improving -Reactive thrombocytosis. -Microcytic anemia cause unknown at this point. -Alzheimer's dementia late onset type. -Chronic seizure disorder. PLAN: Sodium much improved with salt tablets today continue. Orthopedics has no plans for surgical intervention nor any bracing for her cervical thoracic spine as there appears to be no specific pathologic process. Continue to mobilize with assistance increased physical therapy. Discharge planning for the next 24 hours. We will continue to follow closely. CUSTOMER MARKETING MANAGER statement: Patient was seen and examined by nurse practitioner Gilda Aragon and all elements of the case discussed with attending Dr. Long
[2017-06-10] MEDS: ATORVASTATIN 40 MG TAB PO SCH (21:06)
[2017-06-10 22:59] VITALS: RESP 16
--- NOTE | 2017-06-11 05:33 | PN ---
PROGRESS NOTE DATE OF SURGERY: 06/10/2017 ATTENDING NOTE: Patient seen and examined by me. I discussed with nurse practitioner, Ms. Aragon. This is a patient who presented with fall. Seen by orthopedics, not for any further intervention. The patient is comfortable. Pain is well controlled. Tolerating a diet. Did speak to the daughter at the bedside today. Given her age, mental capacity, overall prognosis is guarded. The patient needs close supervision at all times. On examination, temperature 97.8 pulse 57, respiratory 18, blood pressure is running a bit on the low side. INVESTIGATIONS: Potassium 4. ATTENDING NOTE: Patient seen and examined by me. I discussed with nurse practitioner, Ms. Aragon. The patient will be going back to the assisted living. Pain is controlled. Prognosis guarded. Use Joaquin wraps. MMODL / IJN: [id number] /
[2017-06-11 07:47] LABS: Anion Gap 8 mmol/L; Blood Urea Nitrogen 8 mg/dL (7-17); Calcium 8.8 mg/dL (8.4-10.2); Carbon Dioxide 22 mmol/L (22-30); Chloride 102 mmol/L (98-107); Glucose 91 mg/dL (74-99); Non-African American GFR(MDRD) >60 (>60 ml/min/1.73 sqM); Sodium 132 mmol/L (137-145)
[2017-06-11 08:33] VITALS: BP 115/52; PULSE 60; TEMP 97.6
[2017-06-11] MEDS: ENOXAPARIN 40 MG/0.4 ML SYRINGE SQ SCH (09:20)
[2017-06-11] MEDS: amLODIPine 5 MG TAB PO SCH (09:23)
[2017-06-11] MEDS: PANTOPRAZOLE 40 MG TABLET PO SCH (09:23)
[2017-06-11] MEDS: CHOLECALCIFEROL 1,000 UNIT TAB PO SCH (09:23)
[2017-06-11] MEDS: SODIUM CHLORIDE TAB 1 GM TAB PO SCH (09:23)
[2017-06-11] MEDS: METOPROLOL TARTRATE 25 MG TAB PO SCH (09:23)
[2017-06-11] MEDS: levETIRAcetam 500 MG TAB PO SCH (09:23)
[2017-06-11] MEDS: ASPIRIN 81 MG PO SCH (09:23)
[2017-06-11] MEDS: ESCITALOPRAM 5 MG TAB PO SCH (09:23)
[2017-06-11] MEDS: ACETAMINOPHEN TAB 325 MG TAB PO PRN (09:49)
--- NOTE | 2017-06-11 10:45 | MR ---
"EXAMINATION TYPE: MR cspine/tspine wo/w con DATE OF EXAM: 06/08/2017 COMPARISON: Plain film 06/07/2017, cervical spine CT 06/07/2017 HISTORY: Abnormal cervical spine CT, lytic lesion C3 TECHNIQUE: Multiplanar, multisequence images of the cervical and thoracic spine is performed without and with IV contrast, utilizing 7.5 mL intravenous Gadavist FINDINGS: Motion on the exam may limit sensitivity. Cervical spine: Abnormal marrow signal present on the left at C3 corresponds to the lytic lesion note d on CT scan which extends into the left aspect of the vertebral body, the pedicle as well as the fraser hubert on the left. Intermediate signal seen on T1-weighted images, increased signal on T2. There is enh ancement following contrast administration, there is an associated soft tissue component. Some soft t issue signal also abnormal in the area surrounding. Cervical vertebral bodies show preserved height and alignment. Loss of disc height present at the int ervertebral levels, there is multilevel spondylosis, cervical cord signal is maintained C2-3: Unremarkable C3-4: Posterior extension of endplate disc complex extends laterally causing foraminal encroachment, anterior mass effect on the thecal sac and results in mild central canal stenosis. C4-5: Posterior extension of endplate disc complex causes mass effect on the anterior thecal sac, mil d central canal stenosis. Bilateral foraminal encroachment is present. C5-6: Foraminal encroachment is present. Posterior extension of endplate disc complex causes only mil d mass effect on the thecal sac C6-7: Bilateral foraminal encroachment is present. Mild anterior mass effect on the thecal sac due to circumferential posterior extension of endplate disc complex as at C5-6. IMPRESSION: Correlate for metastatic disease, multiple myeloma. Bone scan may be of benefit. Infectio n not excluded. Thoracic spine: There is a spinal curvature. Multiple thoracic vertebral bodies show loss of height c entrally to include T5-T9, T11 and T12, L1 and L2. There is no significant central canal stenosis. Th oracic cord signal is maintained. There is multilevel facet arthropathy. L2 shows intermediate signal on T1-weighted sequences and may represent a subacute fracture. Incidental note is made of the soft tissue mass likely in the superior segment of the right lower lobe measuring approximately 2.2 cm. No sizable disc herniation, multilevel disc bulges are present.. IMPRESSION: Multilevel osteoporotic compression fractures, lumbar spine shows probable subacute fract ure. Lung mass, correlate for bronchogenic carcinoma. Scoliosis. Motion on the exam may limit sensiti vity. A Yellow message has been communicated to Alex Warren via the [employer] | Critical Result emil oates on 06/11/2017 10:41 AM, Message ID [id number]."
--- NOTE | 2017-06-11 20:54 | PN ---
PROGRESS NOTE DATE OF SERVICE: 06/11/17 PRESENTING COMPLAINT: Fall. HISTORY OF PRESENTING COMPLAINT: This patient presented with fall. [place] some chronic compression fracture. Tolerating a diet. Pain is well controlled. Tolerating diet. Pleasantly confused. REVIEW OF SYSTEMS: Done for constitutional, cardiovascular, GI, pulmonary, relevant findings as above. CURRENT MEDICATIONS: Reviewed. PHYSICAL EXAMINATION: Temperature 97.6, pulse 50, respiration 16, blood pressure 105/52, pulse ox 95% on room air. Sitting in a chair, comfortable, smiling. LUNGS: Clear. Cardiovascular first and second sounds normal. ABDOMEN: Soft, nontender. Liver and spleen not palpable. Psychiatry awake answering simple questions. Moving all 4 limbs. The patient's pain is well controlled. INVESTIGATION: Potassium 4. ASSESSMENT: 1. Multiple falls multifactorial felt to have compression fractures, mostly chronic. 2. Orthostatic hypotension. 3. Compression fractures of T12, T11, T9, T8, T6, C3 C4 in the setting of osteoporosis mostly felt to be chronic. 4. Possible acute right superior inferior pubic rami pelvic fracture possible. 5. Metabolic acidosis on presentation. 6. Hyponatremia hypoosmolality, improved. 7. Reactive thrombocytosis. 8. Microcytic anemia cause unknown. 9. Alzheimer's dementia late onset type. 10.Chronic seizure disorder. PLAN: Continue medication and treatment plan. Patient could be discharged. Overall prognosis is guarded. X-ray findings some suggestive of multiple myeloma, but given her age and advanced dementia, I am not sure any workup is a good idea, but we will get the patient to follow up with Hematology once as an outpatient. Will have the family set up a followup. MMHOLLIS / GUERLINEN: [id number] /
--- NOTE | 2017-07-09 07:10 | DS ---
DISCHARGE SUMMARY FINAL DIAGNOSES: 1. Multiple falls multifactorial, felt to have compression fractures mostly chronic. 2. Orthostatic hypotension. 3. Compression fracture of Z21-H94-Y5-T8 T6-C3 C4 in the setting of osteoporosis mostly felt to be chronic. 4. Possible acute right superior inferior pubic rami pelvic fracture possible. 5. Metabolic acidosis on presentation. 6. Hyponatremia, likely with hypoosmolality. 7. Reactive thrombocytosis. 8. Macrocytic anemia cause unknown. 9. Alzheimer's dementia late onset type. 10.Chronic seizure disorder. 11.Questionable diagnosis of multiple myeloma family to set a follow up. DISPOSITION: [facility]. HOSPITAL COURSE: 81-year-old patient with multiple medical problems, resident of [facility], been sent in from multiple falls. The patient is found to have multiple compression fractures as above. Duration undetermined. The patient does eat a fair amount. She is pleasantly confused. Seen by Dr. Mosher from Orthopedics and they okayed her to be mobilized with physical therapy. They will not do any intervention. Pain control in place. The patient prognosis is not good given her overall poor condition. EXAMINATION: Lungs are clear. Cardiovascular 1st and 2nd sounds normal. The patient does answer simple questions. Does move all the limbs. INVESTIGATIONS: Sodium 132. BUN and creatinine normal. CONSULTATION: Dr. Mosher from [facility]. HOME GO MEDICATIONS: 1. Tylenol 5 mg q.6h p.r.n. 2. Aspirin 81 mg p.o. daily. 3. Lipitor 40 mg q.h.s. 4. Vitamin D3 1000 units p.o. daily. 5. Lexapro 50 mg p.o. daily. 6. Hydrocortisone topical b.i.d. p.r.n. 7. Lopressor 25 p.o. b.i.d. 8. Omeprazole 20 mg b.i.d. 9. Exelon 1.5 mg a.c. b.i.d. 10.Norvasc 5 mg p.o. daily. 11.Keppra 500 mg p.o. b.i.d. 12.Dulcolax 5 mg daily p.r.n. 13.Sodium chloride 1 g p.o. q.i.d. Follow with Dr. Mosher as needed; Dr. Olguin in 3 days. [facility] in 3-5 days. [place] getting home care to follow. Additionally there was a question about multiple myeloma, also a lung mass. Given overall medical condition, she is not a good candidate for any intervention, which was discussed. Copy Dr. Olguin. PANCHO / VITO: [id number] /
== END 2017-06-11 12:45 | disposition home or self-care (01) | DRG 543 ==
LOC: EC 01:11 → 5MS5E 03:59
PROVIDERS: ADMIT Hospitalist; ATTEND Hospitalist
DX: M48.55XA Collapsed vertebra, not elsewhere classified, thoracolumbar region, initial encounter for fracture (principal); E87.2 Acidosis; S32.511A Fracture of superior rim of right pubis, initial encounter for closed fracture; E87.1 Hypo-osmolality and hyponatremia; E83.42 Hypomagnesemia; M48.02 Spinal stenosis, cervical region; R00.1 Bradycardia, unspecified; G30.1 Alzheimer's disease with late onset; F02.80 Dementia in other diseases classified elsewhere, unspecified severity, without behavioral disturbance, psychotic disturbance, mood disturbance, and anxiety; G40.909 Epilepsy, unspecified, not intractable, without status epilepticus; D47.3 Essential (hemorrhagic) thrombocythemia; D50.9 Iron deficiency anemia, unspecified; I44.4 Left anterior fascicular block; M81.0 Age-related osteoporosis without current pathological fracture; I95.1 Orthostatic hypotension; D53.9 Nutritional anemia, unspecified; R29.6 Repeated falls; F41.9 Anxiety disorder, unspecified; H35.30 Unspecified macular degeneration; I10 Essential (primary) hypertension; M50.321 Other cervical disc degeneration at C4-C5 level; M41.80 Other forms of scoliosis, site unspecified; Z88.1 Allergy status to other antibiotic agents; Z91.018 Allergy to other foods; Z91.048 Other nonmedicinal substance allergy status; Z79.899 Other long term (current) drug therapy; Z79.82 Long term (current) use of aspirin; Z86.73 Personal history of transient ischemic attack (TIA), and cerebral infarction without residual deficits; Z87.891 Personal history of nicotine dependence
CPT/HCPCS: 36415; 51701; 70450; 71020; 72070; 72125; 72156; 72157; 73502; 80048; 80053; 80177; 81001; 82272; 82550; 82553; 83605; 83735; 83880; 83930; 84484; 85025; 85610; 85730; 87040; 93005; 94640; 94760; 96360; 96361; 99285